=== PATIENT | female | born 1935 | race Caucasian/White ===

== ENCOUNTER 2018-10-14 07:19 | Inpatient (IN) | payer BC ==
[~2018-10-14] VITALS: Ht 167.6 cm; Wt 67.0 kg
[2018-10-14] VITALS (9 sets, daily range): BP systolic 114–123; BP diastolic 58–70; PULSE 74–110; RESP 18–25; Ht 167.6 cm; Wt 67.0 kg
[2018-10-14] MEDS ORDERED: morphine 4 MG/ML VIAL IV STA (07:25)
[2018-10-14] MEDS ORDERED: SODIUM CHLORIDE 0.9% 1L BAG IV* STA (07:25)
[2018-10-14] MEDS ORDERED: CEFEPIME 2GM/50 ML (PMX) 50 ML IVPB STA (07:25)
[2018-10-14] MEDS ORDERED: ONDANSETRON 4 MG INJ IV STA (07:25)
[2018-10-14] MEDS ORDERED: PANTOPRAZOLE 40 MG INJ IV STA (07:25)
[2018-10-14] MEDS ORDERED: ACETAMINOPHEN 325 MG TAB PO STA (07:25)
[2018-10-14] MEDS ORDERED: VANCOMYCIN 1 GM (PMX) 250 ML IVPB ONE (07:30)
--- NOTE | 2018-10-14 07:42 | ERD ---
ER Documentation Chief Complaint Chief Complaint fever, blooding dark blood x1 this morning also low o2 saturation HPI This is an 83-year-old female with a history of Alzheimer's recently placed in [facility] for rehabilitation due to a right ankle fracture. The patient awoke this morning and appeared hypoxic. She was satting at roughly 70% required 2 L nasal cannula and improved her pulse ox to 98%. Th ere is no coughing choking or gagging episode. The patient also had an episode of coffee-ground emesis. She had no hemoptysis and no hematemesis. Her daughter also noticed that her abdomen appeared distended when she went to visit this morning. She stated that her mother appeared clammy and pale. Therefore 911 was called and EMS brought the patient to the emergency department to be further evaluated. Patient currently is receiving 5000 units of heparin cutaneously every 12 hours for DVT prophylaxis. Her daughter also indicates that she has been having urinary retention for several days. She is wearing a diaper but her daughter states she has not noticed any wet diapers for several days and nor has nursing staff. 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 The patient at [place] emergency room had a closed reduction of her right ankle fracture. The patient is a full code. ROS All systems reviewed and are negative except as per history of present illness. Allergies Allergies: Coded Allergies: No Known Allergy (Unverified , 10/14/18) Physical Exam Vitals Vital Signs Date Temp Pulse Resp B/P (MAP) Pulse Ox O2 O2 Flow FiO2 Time Delivery Rate 10/14/18 97 07:30 10/14/18 98.1 117 20 145/114 90 07:29 (124) Physical Exam Constitutional:Well-developed. Well-nourished. Mild respiratory distress HEENT:Normocephalic. Atraumatic.Pupils were equal round reactive to light. Very dry mucous membranes.No tonsillar exudates. Neck: No nuchal rigidity. No lymphadenopathy. No posterior cervical spine tenderness or step-offs. Respiratory: Not using accessory muscles of respiration.Lungs were clear to auscultation bilaterally. No rhonchi. No rales. Bilateral wheezing Cardiovascular: Regular rate regular rhythm.No murmurs. No rubs were appreci ated.S1, S2 normal. Distal pulses 2+ in the left lower extremity not palpable in the right lower extremity as patient is in a short leg cast. GI: Abdomen was distended, palpable bladder, hypoactive bowel sounds, with mild diffuse tenderness.. No pulsatile abdominal masses or bruits. No rebound. No guarding. Muscle skeletal: Full range of motion of both the upper extremities bilaterally. No tenderness to the left lower extremity. Short leg cast in the right lower extremity. Skin: No petechia, no purpura. No lesions on the palms or the soles of the feet. No maculopapular rash. NEURO: Patient was alert with her eyes open patient withdrew to pain. Patient was mumbling incomprehensible sounds. Patient was not following verbal command. Patient has a history of dementia and normally is alert to person but not to place or time. Gait was not observed. Result Diagram: 10/14/18 0750 10/14/18 0750 Results 24 hrs Laboratory Tests Test 10/14/18 07:50 10/14/18 07:51 10/14/18 07:53 White Blood Count 17.8 10^3/ul Red Blood Count 4.46 10^6/ul Hemoglobin 13.4 g/dl Hematocrit 42.0 % Mean Corpuscular Volume 94.2 fl Mean Corpuscular Hemoglobin 30.0 pg Mean Corpuscular 31.9 g/dl Hemoglobin Concent Red Cell Distribution Width 13.6 % Platelet Count 200 10^3/UL Mean Platelet Volume 10.0 fl Immature Granulocytes % 0.700 % Neutrophils % 91.7 % Lymphocytes % 3.4 % Monocytes % 4.0 % Eosinophils % 0.0 % Basophils % 0.2 % Nucleated Red Blood Cells % 0.0 /100WBC Immature Granulocytes # 0.120 10^3/ul Neutrophils # 16.3 10^3/ul Lymphocytes # 0.6 10^3/ul Monocytes # 0.7 10^3/ul Eosinophils # 0.0 10^3/ul Basophils # 0.0 10^3/ul Nucleated Red Blood Cells # 0.0 10^3/ul Prothrombin Time 14.5 Sec Prothrombin Time Ratio 1.1 INR International 1.12 Normalized Ratio Activated Partial Thromboplast 29.7 Sec Time Sodium Level 141 mmol/L Potassium Level 5.5 mmol/L Chloride Level 99 mmol/L Carbon Dioxide Level 27 mmol/L Anion Gap 15 Blood Urea Nitrogen 53 mg/dl Creatinine 3.37 mg/dl Est Glomerular Filtrat mL/min Rate mL/min Glucose Level 218 mg/dl Calcium Level 9.5 mg/dl Total Bilirubin 0.7 mg/dl Direct Bilirubin 0.00 mg/dl Indirect Bilirubin 0.7 mg/dl Aspartate Amino 31 IU/L Transf (AST/SGOT) Alanine 20 IU/L Aminotransferase (ALT/SGPT) Alkaline Phosphatase 89 IU/L Troponin I Pending Total Protein 8.3 g/dl Albumin 4.5 g/dl Globulin 3.80 g/dl Albumin/Globulin Ratio 1.18 Amylase Level 68 U/L Lipase 61 U/L Urine Color YELLOW Urine Clarity CLEAR Urine pH 5.0 Urine Specific Gordon 1.012 Urine Ketones NEGATIVE mg/dL Urine Nitrite NEGATIVE mg/dL Urine Bilirubin NEGATIVE mg/dL Urine Urobilinogen NEGATIVE mg/dL Urine Leukocyte Esterase NEGATIVE Sophia/ul Urine Microscopic RBC 12 /HPF Urine Microscopic WBC 1 /HPF Urine Bacteria FEW /HPF Urine Hemoglobin 1+ mg/dL Urine Glucose NEGATIVE mg/dL Urine Total Protein NEGATIVE mg/dl POC Venous Lactate 1.6 mmol/L Current Medications Medications Dose Sig/Ely Start Time Status Last (Trade) Ordered Route PRN Stop Time Admin Dose Reason Admin Sodium 2,400 ml BOLUS OVER 2 10/14/18 DC 10/14/18 Chloride HOURS STAT 07:25 07:55 (NS) IV* 10/14/18 07:30 650 mg ONCE STAT 10/14/18 DC Acetaminophen PO 07:25 (Tylenol 10/14/18 07:30 Tab) Morphine 2 mg ONCE STAT 10/14/18 DC 10/14/18 Sulfate IV 07:25 07:56 (morphine) 10/14/18 07:30 Ondansetron 4 mg ONCE STAT 10/14/18 DC 10/14/18 HCl (Zofran IV 07:25 07:56 Inj) 10/14/18 07:31 Cefepime HCl 50 ml @ ONCE STAT 10/14/18 DC 10/14/18 100 mls/hr IVPB 07:25 07:55 10/14/18 07:54 Vancomycin 250 ml @ ONCE ONCE 10/14/18 HCl 125 mls/hr IVPB 07:30 10/14/18 09:29 40 mg ONCE STAT 10/14/18 DC 10/14/18 Pantoprazole IV 07:25 07:56 (Protonix 10/14/18 07:31 Iv) Procedures/MDM The patient presented to the emergency department with an acute and persistent change in their mental status. The differential diagnosis is diverse however reversible causes such as hypoglycemia, opiate overdose, thiamine deficiency were immediately considered. The patient was placed on a nurse monitoring, continuous pulse oximetry and IV access was established. The patients airway was secure however hypoxic events such as anemia, shock, or severe pulmonary disease were all considered as etiologies in this patients presentation. Circulation assessed with good cap refill and did not require fluids or pressure support. Finger stick for rapid glucose determined to be normal. The patient did meet Sirs criteria however her lactic acid was normal. She did receive a 30 cc/kg bolus of normal saline and was treated with broad-spectrum antibiotics as initially it was thought that the patient was sepsis of unclear etiology given vancomycin and cefepime. The patient had significant abdominal distention. This appeared to be causing some dyspnea and hypoxia. The bladder was palpable. Due to her symptoms of urinary retention a Garcia catheter was placed and over 1.6 L of urine, transparent drained into the Garcia bag. The patient's abdominal distention had significantly improved. She was no longer hypoxic and no longer appeared to be in discomfort. The urine was sent for analysis and culture. Blood cultures were also obtained. 12 Lead EKG tracing ordered and reviewed by myself showed: Sinus tachycardia 110 bpm and no arrhythmia. NJ interval normal. QRS duration normal. Right ventricular hypertrophy No ST segment elevation No ST segment depression. No changes consistent with acute ischemia. 1 view chest radiograph was reviewed by myself as the patient did appear to have an episode of coffee-ground emesis. However there is no evidence of an infiltrate or pneumothorax. The patient had a type and screen obtained. She was given Protonix prophylactically. She was also given Zofran. The patient had new onset renal failure with a BUN of 53 and creatinine 3.37. The BUN to creatinine ratio was 15 which indicate this could be renal pathology. Urinalysis showed microscopic hematuria but no evidence of urinary tract infection. Therefore at this time I have obtained a CT scan of the abdomen without contrast for further evaluation into the patient's new onset renal failure and abdominal distention which did appear to be a result of urinary retention. The patient was hyperkalemic with a potassium of 5.5. She received an amp of bicarbonate amp of calcium chloride. The patient has leukocytosis with white blood count of 17,000. She had artery received IV antibiotics. The patient's troponin was elevated at 1.310. The patient received prophylactic aspirin. She will be admitted for serial twelve-lead EKG tracings and cardiac set of enzymes. Departure Diagnosis: Primary Impression: Hematemesis Nausea presence: without nausea Qualified Codes: K92.0 - Hematemesis Additional Impressions: Urinary retention Non-STEMI (non-ST elevated myocardial infarction) Renal failure Renal failure chronicity: acute Acute renal failure type: unspecified Qualified Codes: N17.9 - Acute kidney failure, unspecified Hyperkalemia Condition: Serious GAVIN JUAREZ MD Oct 14, 2018 07:41
[2018-10-14] MEDS ORDERED: CA CHLORIDE 10% 10 ML SYRINGE IV STA (08:41)
[2018-10-14] MEDS ORDERED: NA BICARBONATE 8.4% 50 ML SYG IV STA (08:41)
[2018-10-14] MEDS ORDERED: ACETAMINOPHEN 325 MG TAB PO PRN ×2 (09:30→10:30)
[2018-10-14] MEDS ORDERED: ONDANSETRON 4 MG INJ IV PRN (09:30)
--- NOTE | 2018-10-14 10:17 | HP ---
Date/Time of Note Date/Time of Note DATE: 10/14/18 TIME: 10:17 Assessment/Plan VTE Prophylaxis Pharmacological prophylaxis: heparin (Hold if H&H drops) Lines/Catheters IV Catheter Type (from [facility]): Saline Lock Assessment/Plan Hospital Course 83-year-old female with a past medical history of dementia who recently had a right ankle fracture that was treated with a plaster cast and she was getting rehabilitation at a long term facility. The patient became hypoxic and was cold and clammy. The patient also had an episode of hematemesis. There fore, paramedics were called and was brought to the emergency room where she was found to have acute kidney injury, hyperkalemia, and elevated troponins, who will be admitted to inpatient setting for further treatment and evaluation. 1. NSTEMI. -Etiology unclear. -Obtain cardiology consult. -Obtain 2D echocardiogram to evaluate the left ventricular ejection fraction and to evaluate for any wall motion abnormalities. -Start aspirin. -Therapeutic anticoagulation will be deferred to cardiology specifically since the patient had an episode of hematemesis. 2. Acute kidney injury. -Etiology could be multifactorial including urinary outlet obstruction. -Obtain nephrology evaluation. -Use nephrotoxic drugs with caution. 3. Urinary obstruction. -Status post Garcia catheter placement. -CT scan of the abdomen and pelvis showing mild bilateral hydroureteronephrosis. -Obtain Urology consult. 4. Hyperkalemia. -Most probably secondary to #2. -Status post treatment. 5. Alzheimer's dementia. -Resume donepezil. 6. Recent right ankle fracture. -Status post plaster cast placement. 7. Hematemesis. -Start the patient on PPI. -Obtain serial H&Hs. Plan: The patient will be admitted to inpatient telemetry floor. The patient will be kept n.p.o. except for medications.. The patient will be started on DVT prophylaxis and gastrointestinal prophylaxis. The patient will remain a full code. Activities will be bedrest. The rest of the patient's management will be based on the clinical course, inputs from consultants, and the results of diagnostic studies. Based on the patient's clinical presentation, she most probably requires at least 2 midnights' stay for further management and evaluation of her clinical presentation. The patient was seen in collaboration with Dr. Cortes. Result Diagram: 10/14/18 0750 10/14/18 0750 Results 24hrs Laboratory Tests Test 10/14/18 07:50 10/14/18 07:51 10/14/18 07:53 White Blood Count 17.8 H Red Blood Count 4.46 Hemoglobin 13.4 Hematocrit 42.0 Mean Corpuscular Volume 94.2 Mean Corpuscular Hemoglobin 30.0 Mean Corpuscular Hemoglobin Concent 31.9 L Red Cell Distribution Width 13.6 Platelet Count 200 Mean Platelet Volume 10.0 Immature Granulocytes % 0.700 H Neutrophils % 91.7 H Lymphocytes % 3.4 L Monocytes % 4.0 Eosinophils % 0.0 Basophils % 0.2 Nucleated Red Blood Cells % 0.0 Immature Granulocytes # 0.120 H Neutrophils # 16.3 H Lymphocytes # 0.6 L Monocytes # 0.7 Eosinophils # 0.0 Basophils # 0.0 Nucleated Red Blood Cells # 0.0 Prothrombin Time 14.5 Prothrombin Time Ratio 1.1 INR International Normalized Ratio 1.12 Activated Partial Thromboplast Time 29.7 Sodium Level 141 Potassium Level 5.5 H Chloride Level 99 Carbon Dioxide Level 27 Anion Gap 15 H Blood Urea Nitrogen 53 H Creatinine 3.37 H Est Glomerular Filtrat Rate mL/min Glucose Level 218 Calcium Level 9.5 Total Bilirubin 0.7 Direct Bilirubin 0.00 Indirect Bilirubin 0.7 Aspartate Amino Transf (AST/SGOT) 31 Alanine Aminotransferase (ALT/SGPT) 20 Alkaline Phosphatase 89 Troponin I 1.310 *H Total Protein 8.3 H Albumin 4.5 Globulin 3.80 H Albumin/Globulin Ratio 1.18 Amylase Level 68 Lipase 61 Urine Color YELLOW Urine Clarity CLEAR Urine pH 5.0 Urine Specific Haskell 1.012 Urine Ketones NEGATIVE Urine Nitrite NEGATIVE Urine Bilirubin NEGATIVE Urine Urobilinogen NEGATIVE Urine Leukocyte Esterase NEGATIVE Urine Microscopic RBC 12 H Urine Microscopic WBC 1 Urine Bacteria FEW A Urine Hemoglobin 1+ H Urine Glucose NEGATIVE Urine Total Protein NEGATIVE POC Venous Lactate 1.6 HPI/ROS Admit Date/Time Admit Date/Time Hx of Present Illness Reason for for admission: Brought in from a long term facility because of worsening mental status. JEANNINE and elevated troponins in the emergency room. Consultants 1. Og Cm D.O, Cardiology. 2. Barrington Bowden D.O, Nephrology. This is an 83-year-old female with past medical history of Alzheimer's dementia. The patient was at [facility] due to a right ankle fracture for rehabilitation. The patient woke up this morning and appeared hypoxic. The patient was saturating apparently 70% and required 2 L of nasal cannula with improvement in the pulse oximetry. The patient also had an episode of coffee-ground emesis. The patient also had a distended abdomen as per the patient's daughter who visited her mother this morning. The patient also appeared clammy as per the patient's daughter. Therefore, 911 was called and the patient was brought to the emergency room for further evaluation. The patient had significant abdominal distention that improved with Garcia catheter insertion that drained 1600 mL of urine. The patient was also noticed to have elevated troponins and leukocytosis. The patient was also noticed to be in acute kidney injury. The patient was afebrile. The patient underwent a CT scan of the abdomen and pelvis that was showing mild bilateral hydroureteronephrosis and sigmoid diverticulosis without diverticulitis. The patient was also noticed to have a hyperkalemia with a potassium of 5.5. The patient was treated with IV vancomycin and Zosyn along with IV sodium bicarbonate and calcium chloride. ROS Subjective hx not possible: other (Patient has underlying dementia.) PMH/Family/Social Past Medical History 1. Dementia. Medications Current Medications Ondansetron HCl (Zofran Inj) 4 mg ER BRIDGE PRN IV NAUSEA/VOMITING; Start 10/14/18 at 09:30; Stop 10/15/18 at 09:29 Acetaminophen (Tylenol Tab) 650 mg ER BRIDGE PRN PO .MILD PAIN 1-3 OR TEMP; Start 10/14/18 at 09:30; Stop 10/15/18 at 09:29 Coded Allergies: No Known Allergy (Unverified , 10/14/18) Past Surgical History 1. Brain surgery for tumor removal. 2. Hysterectomy. 3. Right hip arthroplasty. 4. Lumbar laminectomy. Social History The patient is demented. Currently lives in a long term facility. Alcohol Use: none Smoking Status: Never smoker Drug Use: none Exam/Review of Systems Vital Signs Vitals Vital Signs Date Temp Pulse Resp B/P (MAP) Pulse Ox O2 O2 Flow FiO2 Time Delivery Rate 10/14/18 105 22 131/92 97 Nasal 4.0 09:30 (105) Cannula 10/14/18 98.0 08:00 Exam Exam General: Adequately build 83 year-old female lying in bed in no apparent distress. HEENT: Normocephalic, atraumatic. Eyes: Anicteric sclerae, conjunctivae clear. ENT: Nasal septum midline, oral mucosa is dry. Neck supple, no JVD noticed. Respiratory: Bilaterally diminished breath sounds. No use of accessory muscles of respiration. No adventitious breath sounds. Cardiovascular: S1, S2 heard. Regular rate and rhythm. Abdomen: Distended and nontender. Genitourinary: Garcia catheter in place. Extremities: No cyanosis, no clubbing, no edema. Peripheral pulses palpable. Right knee plaster cast. Neurologic: The patient is awake and alert. Oriented to self. Skin: Normal skin turgor. No skin rashes. Additional Comments CT Abdomen & Pelvis IMPRESSION: 1. Mild bilateral hydroureteronephrosis. Garcia catheter within decompressed bladder. No evidence of urolithiasis. Bilateral renal cysts. 2. Sigmoid diverticulosis without diverticulitis. 3. Status post hysterectomy, right hip arthroplasty, and lumbar laminectomy with posterior fixation. 4. Calcific atherosclerosis of the aorta and coronary arteries. CXR IMPRESSION: 1. Atherosclerosis. 2. Otherwise normal chest x-ray. ADITYA VALDEZ NP Oct 14, 2018 10:17
[2018-10-14] MEDS ORDERED: SOD CHLORIDE 0.9% 1,000 ML IV SCH (10:21)
[2018-10-14] MEDS ORDERED: NACL 0.9% 3 ML SYG IV SCH (10:30)
[2018-10-14] MEDS ORDERED: DONE10TA7 PO (10:49)
[2018-10-14] MEDS ORDERED: MINE133E23 PR (10:50)
[2018-10-14] MEDS ORDERED: GABA-526 PO (10:50)
[2018-10-14] MEDS ORDERED: BISA10SU75 PR (10:50)
[2018-10-14] MEDS ORDERED: MELA3TAB PO (10:51)
[2018-10-14] MEDS ORDERED: HEPA500021 IJ (10:51)
[2018-10-14] MEDS ORDERED: MULTI PO (10:51)
[2018-10-14] MEDS ORDERED: QUET25TA PO (10:52)
[2018-10-14] MEDS ORDERED: HYDR-4011 PO (10:52)
[2018-10-14] MEDS ORDERED: SENN-120 PO (10:52)
[2018-10-14] MEDS ORDERED: ALPR0.5T PO (10:53)
[2018-10-14] MEDS ORDERED: HEPARIN 5,000 UNIT/1 ML VIAL SC SCH (14:00)
[2018-10-14] MEDS ORDERED: SOD CHLORIDE 0.9% 1,000 ML IV ONE (14:00)
--- NOTE | 2018-10-14 14:07 | RADRPT ---
Echocardiogram Report Patient Name: LIZETH STEARNSPatient ID: [id number] : 5 (83y 2m)Study Date: 10/14/2018 11:38:12 AM Gender: FAccession #: [id number] Tech: [facility] Location: [address] Ref.Physician: ADITYA VALDEZ Height(Cm): BSA: Weight(Kg): Quality: AdequateAccount #: Procedures: Echocardiographic Report: Transthoracic echocardiogram with complete 2D, M-Mode, and doppler examination. Indications: Evaluate Left Ventricular function. Measurements: 2D/M Mode Doppler Measurement Value Normal Range Measurement Value Normal Range LVIDd 2D 3.7 [ 3.8 - 5.2 ] cm AV Peak Luigi 1.4 [ 100.0 - 170.0 ] cm/sec LVIDs 2D 2.6 [ 2.2 - 3.5 ] cm AV Peak PG 8.0 [ 2.0 - 9.0 ] mmHg LVPWd 2D 0.9 [ 0.6 - 0.9 ] cm LVOT Peak Luigi 1.0 [ 70.0 - 110.0 ] cm/sec IVSd 2D 0.9 [ 0.6 - 0.9 ] cm LVOT Peak PG 4.0 [ 2.0 - 6.0 ] mmHg AoR Diam 2D 2.4 [ 2.3 - 3.1 ] cm MV E Peak Luigi 0.4 [ 60.0 - 130.0 ] cm/sec EDV 2D 56.3 [ 46.0 - 106.0 ] ml MV A Peak Luigi 0.8 [ 100.0 - 120.0 ] cm/sec ESV 2D 25.1 [ 14.0 - 42.0 ] ml MV E/A 0.5 [ 0.8 - 1.5 ] ratio EF 2D 55.4 [ 54.0 - 74.0 ] percent MV Decel Time 137 [ 104 - 258 ] msec LA Dimen 2D 2.5 [ 2.7 - 3.8 ] cm Lat E` Luigi 0.1 [ 10.0 - 15.0 ] cm/sec Lateral E/E` 6.2 [ 1.0 - 2.0 ] ratio Med E` Luigi 0.1 cm/sec MV E/A 0.5 [ 0.8 - 1.5 ] ratio TR Peak Luigi 3.0 [ 100.0 - 280.0 ] cm/sec TR Peak PG 37.0 mmHg RVSP 40.0 [ 10.0 - 36.0 ] mmHg Findings: Left Ventricle: Normal left ventricular systolic function. Normal left ventricular cavity size. Normal left ventricular wall thickness. Ejection fraction is visually estimated at 60 %. Tissue Doppler/Mitral Doppler indices are consistent with impaired relaxation (Stage I diastolic dysfunction). Right Ventricle: Normal right ventricular size. Normal right ventricular systolic function. Left Atrium: The left atrium is normal in size. Right Atrium: The right atrium is normal in size. Mitral Valve: Mild mitral leaflet calcification. Mild mitral annular calcification. Trace mitral regurgitation. Aortic Valve: No significant aortic stenosis or insufficiency. Aortic cusps appear mildly calcified. Mild aortic valve regurgitation. Tricuspid Valve: Normal appearance of the tricuspid valve. Estimated peak PA systolic pressure 40 mmHg. There is moderate tricuspid regurgitation. Pulmonic Valve: Pulmonic valve not well visualized. There is trace pulmonic regurgitation. Pericardium: Normal pericardium with no significant pericardial effusion. Aorta: Normal aortic root. IVC: Normal size with poor respiratory collapse consistent with elevated right atrial pressure. Conclusions: Normal left ventricular systolic function. Normal left ventricular cavity size. Normal left ventricular wall thickness. Ejection fraction is visually estimated at 60 %. Tissue Doppler/Mitral Doppler indices are consistent with impaired relaxation (Stage I diastolic dysfunction). Electronically Signed By: Migue Rucker 2018-10-14 14:07:06 PST
--- NOTE | 2018-10-14 14:33 | CONS ---
DATE OF ADMISSION: 10/14/2018 DATE OF CONSULTATION: 10/14/2018 TYPE OF CONSULTATION: Nephrology. REASON FOR CONSULTATION: Acute kidney injury. PHYSICIAN REQUESTING CONSULT: Quiana Prabhakar MD and Vincent Garcia NP HISTORY OF PRESENT ILLNESS: This is an 83-year-old female with a past medical history of Alzheimer's dementia and history of osteoarthritis, who presents to [facility] from a skilled nurse facility due to hypoxemia. The patient was recently at [facility] d ue to right ankle fracture. According to the patient's daughter who was able to provide history, she states that the patient in the last 24 hours has not been looking well. The patient ____ desaturati ng, had episode of coffee-ground emesis. As a result, she was transferred to [facility] for evaluation. On arrival, the patient had laboratory data drawn including CT scan of the abd omen and pelvis which showed bilateral hydroureteronephrosis, diverticulosis without diverticulitis. The patient's laboratory data were also drawn which showed elevated creatinine. In the emergency ro om, the patient has a Garcia catheter placement with excellent urinary output. She was given IV antib iotic and admitted to telemetry med/surg for further evaluation. In patient's renal history per patient's daughter, she had no prior history of acute kidney injury or CKD. On admission, the patient had potassium of 5.5, BUN 53, creatinine 3.37. The patient had no r eports of any hemoptysis, hematemesis or hematochezia. PAST MEDICAL HISTORY: As stated above, history of Alzheimer's dementia, history of osteoarthritis. PAST SURGICAL HISTORY: Status post hip arthroplasty, lumbar laminectomy, hysterectomy. SOCIAL HISTORY: Lives at skilled nurse facility. FAMILY HISTORY: No family history of kidney disease. MEDICATIONS: Have been reviewed. REVIEW OF SYSTEMS: Unable to do adequate review of systems as the patient is altered. Pertinent pos itives as obtained by reviewing medical records and speaking to hospital staff, the patient's family, stated in HPI; otherwise negative. PHYSICAL EXAMINATION: VITAL SIGNS: Blood pressure is 150/85, respirations 20, pulse 107, temperature 98.0. HEENT: Head is normocephalic. NECK: Supple. HEART: Regular rate. LUNGS: Show diminished breath sounds at base. ABDOMEN: Soft, nontender to palpation. No rebound or guarding. EXTREMITIES: Negative for clubbing, cyanosis. No edema. DERMATOLOGIC: No rashes. MUSCULOSKELETAL: No joint effusion. NEUROLOGIC: No obvious focal deficits. LABORATORY DATA: Show sodium 141, potassium 5.5, chloride 99, BUN 52, creatinine 3.37. Troponin 1.3 10. White count 17.8, hemoglobin 13.8, platelet count 200. Urinalysis shows positive hematuria, ___ _. ASSESSMENT AND PLAN: This is an 83-year-old female presenting with: 1. Nonoliguric acute kidney injury with unknown baseline creatinine. Etiology of acute kidney injur y may be secondary to obstructive uropathy. The patient's CT scan shows evidence of bilateral hydrou reteronephrosis. Etiology may be secondary to outlet obstruction. The patient has excellent urinary output after Garcia catheter was placed. Plan at this point is to repeat a BMP to see if there is im provement in renal function. We will repeat a urinalysis. We will check urine electrolytes. We wilmar l check a renal ultrasound for further evaluation of renal parenchyma. Otherwise, continue supportiv e care, renally dose meds, avoid nephrotoxins. 2. Hyperkalemia. Etiology may be secondary to acute kidney injury and obstructive uropathy. The pa tient is status post temporizing measures. We will repeat a BMP level and renal panel. The patient is to be placed on a low potassium diet. 3. Bilateral hydroureteronephrosis. Etiology is like secondary to obstruction. The patient is stat us post Garcia catheter placement with improved urinary output. Will continue to monitor. Consider u rologic evaluation. 4. Mineral bone disorder. Monitor calcium and phosphorus levels. 5. Elevated troponin, possible non-ST elevation myocardial infarction. Plan is to continue to check serial troponins. Check a 2D echo. Continue with medical management. Continue aspirin. 6. Acute encephalopathy and Alzheimer's dementia. Continue to monitor. 7. Possible hematemesis. The patient's hemoglobin level is stable. We will continue to monitor. Co ntinue PPI. 8. Leukocytosis/systemic inflammatory response syndrome. Etiology is still unclear. The patient is currently on empiric antibiotics. We will continue. Follow up cultures. Thank you, Mateo, for this interesting consult. It will be a pleasure to follow the patient with lo pacheco throughout the hospital course. Dictated By: MICHELLE ONEIL/SANDRA Conf#: [id number] DID#: [id number] CC: ZAIN PALOMARES; MARIBELL LOU DO;*EndCC*
--- NOTE | 2018-10-14 14:36 | CONS ---
Assessment/Plan Assessment/Plan Assessment/Plan (Daily) Elevated troponin with preserved EF and no symptoms in the setting of renal failure and hyperkalemia doubt ACS would treat for renal failure possible UTI follow troponin to ensure down trending Consultation Date/Type/Reason Admit Date/Time Type of Consult Cardiology Reason for Consultation elevated troponin Date/Time of Note DATE: 10/14/18 TIME: 14:33 Hx of Present Illness 83 YO with recent ankle fx found in SNF by daughter to be diaphortic with distended abdomen. Brought to ER found to have urinary retention, renal failure and elevated troponin. Pt poor historian hx of dementia. Denies CP poor historian due to dementia and confusion Past Medical History Home Meds Reported Medications Alprazolam* (Xanax*) 0.5 Mg Tab, 0.5 MG PO Q12 PRN for ANXIETY, TAB 10/14/18 Quetiapine Fumarate* (Seroquel*) 25 Mg Tablet, 25 MG PO HS, #30 TAB 10/14/18 Sennosides* (Senna Lax*) 8.6 Mg Tablet, 1 TAB PO QHS PRN for CONSTIPATION, TAB 10/14/18 Hydrocodone/Acetaminophen ([place] 5-325 Tablet) 1 Each Tablet, 1 EACH PO Q6 PRN for SEVERE PAIN LEVEL 7-10, TAB 10/14/18 Multivitamins* (Theragran*) 1 Tab Tab, 1 TAB PO DAILY, TAB 10/14/18 Melatonin (Melatonin ODT) 3 Mg Tab.rapdis, 3 MG PO HS, TAB 10/14/18 Heparin Sodium,Porcine/Pf (HEPARIN SOD 5,000 UNIT/ 0.5 ML) 5,000 Unit/0.5 Ml Vial, 5000 UNIT IJ Q12, VIAL 10/14/18 Gabapentin* (Gabapentin*) 600 Mg Tablet, 600 MG PO TID, #90 TAB 10/14/18 Mineral Oil* (Fleet* Mineral Oil Enema) 133 Ml Oil, 133 ML DE NEEDED PRN for CONSTIPATION, ENEMA 10/14/18 Bisacodyl* (Bisacodyl*) 10 Mg Supp, 10 MG DE Q48 PRN for CONSTIPATION, SUPP 10/14/18 Donepezil* (Donepezil*) 10 Mg Tablet, 10 MG PO DAILY, #30 TAB 10/14/18 Medications Current Medications IV Flush (NS 3 ml) 3 ml PER PROTOCOL IV ; Start 10/14/18 at 10:30 Aspirin (Aspirin) 81 mg DAILY PO ; Start 10/15/18 at 09:00 Acetaminophen (Tylenol Tab) 650 mg Q6H PRN PO .PAIN 1-3 OR TEMP; Start 10/14/18 at 10:30 Heparin Sodium (Porcine) (Heparin (5000 Units/1ml)) 5,000 unit Q8 SC ; Start 10/14/18 at 14:00; Status Hold Pantoprazole (Protonix Iv) 40 mg BID@06,18 IV ; Start 10/14/18 at 18:00 Sodium Chloride 1,000 ml @ 60 mls/hr [id number] ONCE IV ; Start 10/14/18 at 14:00; Stop 10/15/18 at 06:39 Allergies: Coded Allergies: No Known Allergy (Unverified , 10/14/18) Social History Alcohol Use: none Smoking Status: Never smoker Drug Use: none Exam/Review of Systems Exam Vitals Vital Signs Date Temp Pulse Resp B/P (MAP) Pulse Ox O2 O2 Flow FiO2 Time Delivery Rate 10/14/18 103 12:15 10/14/18 97.5 25 116/63 98 Nasal 2.0 11:30 (80) Cannula Constitutional: alert; No oriented Respiratory: clear to auscultation Cardiovascular: regular rate and rhythm; No edema Gastrointestinal: soft Results Result Diagram: 10/14/18 1149 10/14/18 0750 Results 24hrs Laboratory Tests Test 10/14/18 07:50 10/14/18 07:51 10/14/18 07:53 10/14/18 10:42 White Blood Count 17.8 H Red Blood Count 4.46 Hemoglobin 13.4 Hematocrit 42.0 Mean Corpuscular 94.2 Volume Mean Corpuscular 30.0 Hemoglobin Mean Corpuscular 31.9 L Hemoglobin Concent Red Cell 13.6 Distribution Width Platelet Count 200 Mean Platelet Volume 10.0 Immature 0.700 H Granulocytes % Neutrophils % 91.7 H Lymphocytes % 3.4 L Monocytes % 4.0 Eosinophils % 0.0 Basophils % 0.2 Nucleated Red Blood 0.0 Cells % Immature 0.120 H Granulocytes # Neutrophils # 16.3 H Lymphocytes # 0.6 L Monocytes # 0.7 Eosinophils # 0.0 Basophils # 0.0 Nucleated Red Blood 0.0 Cells # Prothrombin Time 14.5 Prothrombin Time 1.1 Ratio INR International 1.12 Normalized Ratio Activated 29.7 Partial Thromboplast Time Sodium Level 141 Potassium Level 5.5 H Chloride Level 99 Carbon Dioxide Level 27 Anion Gap 15 H Blood Urea Nitrogen 53 H Creatinine 3.37 H Est Glomerular Filtrat Rate mL/min Glucose Level 218 Calcium Level 9.5 Total Bilirubin 0.7 Direct Bilirubin 0.00 Indirect Bilirubin 0.7 Aspartate Amino 31 Transf (AST/SGOT) Alanine 20 Aminotransferase (AL T/SGPT) Alkaline Phosphatase 89 Troponin I 1.310 *H Total Protein 8.3 H Albumin 4.5 Globulin 3.80 H Albumin/Globulin 1.18 Ratio Amylase Level 68 Lipase 61 Urine Color YELLOW Urine Clarity CLEAR Urine pH 5.0 Urine Specific 1.012 [place] Urine Ketones NEGATIVE Urine Nitrite NEGATIVE Urine Bilirubin NEGATIVE Urine Urobilinogen NEGATIVE Urine Leukocyte NEGATIVE Esterase Urine Microscopic 12 H RBC Urine Microscopic 1 WBC Urine Bacteria FEW A Urine Hemoglobin 1+ H Urine Glucose NEGATIVE Urine Total Protein NEGATIVE POC Venous Lactate 1.6 1.4 Test 10/14/18 11:49 10/14/18 11:50 Hemoglobin 11.8 L Hematocrit 37.1 Hemoglobin A1c 5.6 Creatine Kinase 81 Creatine Kinase 3.8 Index Creatinine Kinase MB 3.05 H (Mass) Troponin I 1.470 *H Lactic Acid Level 3.2 *H Medications Medication Current Medications IV Flush (NS 3 ml) 3 ml PER PROTOCOL IV ; Start 10/14/18 at 10:30 Aspirin (Aspirin) 81 mg DAILY PO ; Start 10/15/18 at 09:00 Acetaminophen (Tylenol Tab) 650 mg Q6H PRN PO .PAIN 1-3 OR TEMP; Start 10/14/18 at 10:30 Heparin Sodium (Porcine) (Heparin (5000 Units/1ml)) 5,000 unit Q8 SC ; Start 10/14/18 at 14:00; Status Hold Pantoprazole (Protonix Iv) 40 mg BID@06,18 IV ; Start 10/14/18 at 18:00 Sodium Chloride 1,000 ml @ 60 mls/hr [id number] ONCE IV ; Start 10/14/18 at 14:00; Stop 10/15/18 at 06:39 JESÚS MENDIETA MD Oct 14, 2018 14:36
[2018-10-14] MEDS: PANTOPRAZOLE 40 MG INJ IV SCH (17:34)
[2018-10-14] MEDS ORDERED: SENNA TAB PO PRN (19:00)
[2018-10-14] MEDS ORDERED: ALPRAZOLAM 0.5 MG TAB PO PRN (19:00)
[2018-10-14] MEDS: QUETIAPINE 25 MG TAB PO SCH (20:14)
[2018-10-14] MEDS: GABAPENTIN 300 MG CAP PO SCH (20:14)
[2018-10-15] VITALS (16 sets, daily range): BP systolic 97–137; BP diastolic 55–74; PULSE 85–109; RESP 16–20
[2018-10-15] MEDS: PANTOPRAZOLE 40 MG INJ IV SCH ×2 (05:52→17:41)
[2018-10-15] MEDS ORDERED: DONEPEZIL 10 MG TAB PO SCH (09:00)
[2018-10-15] MEDS: SOD CHLORIDE 0.45% 1,000 ML IV SCH ×2 (09:20→20:48)
[2018-10-15] MEDS: GABAPENTIN 300 MG CAP PO SCH (10:39)
[2018-10-15] MEDS: ASPIRIN 81 MG TAB PO SCH (10:39)
[2018-10-15] MEDS: MULTIVITAMINS THERAPEUTIC TAB PO SCH (10:39)
--- NOTE | 2018-10-15 11:41 | PN ---
Date/Time of Note Date/Time of Note DATE: 10/15/18 TIME: 11:36 Assessment/Plan VTE Prophylaxis Risk score (from [facility])>0 risk: 10 SCD applied (from [facility]): Yes Pharmacological prophylaxis: NA/contraindicated Pharm contraindication: bleeding Lines/Catheters IV C[facility]ter Type (from [facility] Peripheral IV Assessment/Plan Hospital Course 1. NSTEMI likely type II secondary to demand -Cardiology consultation appreciated -Echo with preserved EF 2. Acute kidney injury likely secondary to obstructive uropathy from neurogenic bladder -Nephrology consultation appreciated -Patient status post Garcia catheter placement with a significant amount of urine output 3. Urinary retention likely secondary to neurogenic bladder from dementia -Status post Garcia catheter placement. -CT scan of the abdomen and pelvis showing mild bilateral hydroureteronephrosis. -Urology consultation obtained 4. Hyperkalemia secondary to acute kidney injury-resolved 5. Alzheimer's dementia. -DC Aricept as patient's primary to new this medication as patient's dementia is too severe for any benefit 6. History of brain mass status post resection -Patient has been on gabapentin for the past year for seizure prophylaxis, patient has never actually had a seizure and will DC gabapentin as this may be contributing to neurogenic bladder, have discussed risks and benefits of discontinuing gabapentin with patient's daughter and she agrees with discontinuing 7. Recent right ankle fracture. -Status post plaster cast placement. 8. Hematemesis-resolved -Continue PPI -Monitor -No indication for GI consultation at this time Prophylaxis: SCD Result Diagram: 10/15/18 0558 10/15/18 0558 Results 24hrs Laboratory Tests Test 10/14/18 11:49 10/14/18 11:50 10/14/18 13:59 10/14/18 14:03 Hemoglobin 11.8 L Hematocrit 37.1 Hemoglobin A1c 5.6 Creatine Kinase 81 Creatine Kinase 3.8 Index Creatinine Kinase 3.05 H MB (Mass) Troponin I 1.470 *H Lactic Acid Level 3.2 *H Sodium Level 142 Potassium Level 4.9 Chloride Level 105 Carbon Dioxide 29 Level Anion Gap 8 Blood Urea 44 H Nitrogen Creatinine 2.12 #H Est Glomerular Filtrat Rate mL/min Glucose Level 141 # Calcium Level 9.2 B-Type 5210 H Natriuretic Peptide Test 10/14/18 14:30 10/14/18 17:59 2/16/19 00:23 10/15/18 05:58 Urine Color YELLOW Urine Clarity SLIGHTLY CLOUDY A Urine pH 5.0 Urine Specific 1.014 [place] Urine Ketones NEGATIVE Urine Nitrite NEGATIVE Urine Bilirubin NEGATIVE Urine NEGATIVE Urobilinogen Urine Leukocyte NEGATIVE Esterase Urine Microscopic 55 H RBC Urine Microscopic 7 H WBC Urine Bacteria FEW A Urine Mucus FEW A Urine Hemoglobin 3+ H Urine Random 72.72 Creatinine Urine Random 103 H Sodium Urine Glucose NEGATIVE Urine Total 49.0 H Protein Creatine Kinase 59 62 Creatine Kinase 4.8 2.7 Index Creatinine Kinase 2.86 H 1.69 MB (Mass) Troponin I 1.270 *H 1.160 *H 0.956 *H White Blood Count 15.0 H Red Blood Count 3.31 #L Hemoglobin 10.1 L Hematocrit 32.1 L Mean Corpuscular 97.0 Volume Mean Corpuscular 30.5 Hemoglobin Mean Corpuscular 31.5 L Hemoglobin Concen t Red Cell 13.5 Distribution Width Platelet Count 129 #L Mean Platelet 10.4 Volume Immature 0.700 H Granulocytes % Neutrophils % 83.5 H Lymphocytes % 8.7 L Monocytes % 5.7 Eosinophils % 1.1 Basophils % 0.3 Nucleated Red 0.0 Blood Cells % Immature 0.100 H Granulocytes # Neutrophils # 12.6 H Lymphocytes # 1.3 Monocytes # 0.9 Eosinophils # 0.2 Basophils # 0.1 Nucleated Red 0.0 Blood Cells # Sodium Level 147 H Potassium Level 5.0 Chloride Level 105 Carbon Dioxide 30 Level Anion Gap 12 Blood Urea 42 H Nitrogen Creatinine 1.56 H Est Glomerular Filtrat Rate mL/min Glucose Level 116 Calcium Level 8.9 Phosphorus Level 4.6 Magnesium Level 2.2 Total Bilirubin 0.6 Direct Bilirubin 0.00 Indirect 0.6 Bilirubin Aspartate Amino 24 Transf (AST/SGOT) Alanine 24 Aminotransferase (ALT/SGPT) Alkaline 59 Phosphatase Total Protein 6.6 # Albumin 3.4 # Globulin 3.20 Albumin/Globulin 1.06 Ratio Triglycerides 123 Level Cholesterol Level 161 LDL Cholesterol, 92 Calculated HDL Cholesterol 44 Cholesterol/HDL 3.6 Ratio Subjective 24 Hr Interval Summary Constitutional: disoriented Exam/Review of Systems Exam Vitals Vital Signs Date Temp Pulse Resp B/P (MAP) Pulse Ox O2 O2 Flow FiO2 Time Delivery Rate 10/15/18 99.1 95 17 97/55 (69) 94 11:33 10/15/18 Nasal 3.0 06:00 Cannula Intake and Output 10/14/18 10/14/18 10/15/18 1515:00 23:00 07:00 IntakeIntake Total 2050 ml 600 ml OutputOutput Total 650 ml BalanceBalance 2050 ml -50 ml Psych: confusion Respiratory: clear to auscultation Cardiovascular: regular rate and rhythm Gastrointestinal: soft; No distended Musculoskeletal: nl extremities to inspection Results Results 24hrs Laboratory Tests Test 10/14/18 11:49 10/14/18 11:50 10/14/18 13:59 10/14/18 14:03 Hemoglobin 11.8 L Hematocrit 37.1 Hemoglobin A1c 5.6 Creatine Kinase 81 Creatine Kinase 3.8 Index Creatinine Kinase 3.05 H MB (Mass) Troponin I 1.470 *H Lactic Acid Level 3.2 *H Sodium Level 142 Potassium Level 4.9 Chloride Level 105 Carbon Dioxide 29 Level Anion Gap 8 Blood Urea 44 H Nitrogen Creatinine 2.12 #H Est Glomerular Filtrat Rate mL/min Glucose Level 141 # Calcium Level 9.2 B-Type 5210 H Natriuretic Peptide Test 10/14/18 14:30 10/14/18 17:59 10/15/18 00:23 10/15/18 05:58 Urine Color YELLOW Urine Clarity SLIGHTLY CLOUDY A Urine pH 5.0 Urine Specific 1.014 [place] Urine Ketones NEGATIVE Urine Nitrite NEGATIVE Urine Bilirubin NEGATIVE Urine NEGATIVE Urobilinogen Urine Leukocyte NEGATIVE Esterase Urine Microscopic 55 H RBC Urine Microscopic 7 H WBC Urine Bacteria FEW A Urine Mucus FEW A Urine Hemoglobin 3+ H Urine Random 72.72 Creatinine Urine Random 103 H Sodium Urine Glucose NEGATIVE Urine Total 49.0 H Protein Creatine Kinase 59 62 Creatine Kinase 4.8 2.7 Index Creatinine Kinase 2.86 H 1.69 MB (Mass) Troponin I 1.270 *H 1.160 *H 0.956 *H White Blood Count 15.0 H Red Blood Count 3.31 #L Hemoglobin 10.1 L Hematocrit 32.1 L Mean Corpuscular 97.0 Volume Mean Corpuscular 30.5 Hemoglobin Mean Corpuscular 31.5 L Hemoglobin Concen t Red Cell 13.5 Distribution Width Platelet Count 129 #L Mean Platelet 10.4 Volume Immature 0.700 H Granulocytes % Neutrophils % 83.5 H Lymphocytes % 8.7 L Monocytes % 5.7 Eosinophils % 1.1 Basophils % 0.3 Nucleated Red 0.0 Blood Cells % Immature 0.100 H Granulocytes # Neutrophils # 12.6 H Lymphocytes # 1.3 Monocytes # 0.9 Eosinophils # 0.2 Basophils # 0.1 Nucleated Red 0.0 Blood Cells # Sodium Level 147 H Potassium Level 5.0 Chloride Level 105 Carbon Dioxide 30 Level Anion Gap 12 Blood Urea 42 H Nitrogen Creatinine 1.56 H Est Glomerular Filtrat Rate mL/min Glucose Level 116 Calcium Level 8.9 Phosphorus Level 4.6 Magnesium Level 2.2 Total Bilirubin 0.6 Direct Bilirubin 0.00 Indirect 0.6 Bilirubin Aspartate Amino 24 Transf (AST/SGOT) Alanine 24 Aminotransferase (ALT/SGPT) Alkaline 59 Phosphatase Total Protein 6.6 # Albumin 3.4 # Globulin 3.20 Albumin/Globulin 1.06 Ratio Triglycerides 123 Level Cholesterol Level 161 LDL Cholesterol, 92 Calculated HDL Cholesterol 44 Cholesterol/HDL 3.6 Ratio Medications Medication Current Medications IV Flush (NS 3 ml) 3 ml PER PROTOCOL IV ; Start 10/14/18 at 10:30 Aspirin (Aspirin) 81 mg DAILY PO Last administered on 10/15/18at 10:39; Admin Dose 81 MG; Start 10/15/18 at 09:00 Acetaminophen (Tylenol Tab) 650 mg Q6H PRN PO .PAIN 1-3 OR TEMP; Start 10/14/18 at 10:30 Heparin Sodium (Porcine) (Heparin (5000 Units/1ml)) 5,000 unit Q8 SC ; Start 10/14/18 at 14:00; Status Hold Pantoprazole (Protonix Iv) 40 mg BID@06,18 IV Last administered on 10/15/18at 05:52; Admin Dose 40 MG; Start 10/14/18 at 18:00 Alprazolam (Xanax) 0.5 mg Q12 PRN PO ANXIETY; Start 10/14/18 at 19:00 Donepezil HCl (Aricept) 10 mg DAILY PO ; Start 10/15/18 at 09:00 Gabapentin (Neurontin) 600 mg TID PO Last administered on 10/15/18at 10:39; Admin Dose 600 MG; Start 10/14/18 at 21:00 Multivitamins Therapeutic (Theragran) 1 tab DAILY PO Last administered on 10/15/18at 10:39; Admin Dose 1 TAB; Start 10/15/18 at 09:00 Quetiapine Fumarate (Seroquel) 25 mg HS PO Last administered on 10/14/18at 20:14; Admin Dose 25 MG; Start 10/14/18 at 21:00 Senna (Senokot) 1 tab QHS PRN PO CONSTIPATION; Start 10/14/18 at 19:00 Sodium Chloride 1,000 ml @ 75 mls/hr [id number] IV Last administered on 10/15/18at 09:20; Admin Dose 75 MLS/HR; Start 10/15/18 at 08:30 NOEMI EDGE Oct 15, 2018 11:41
--- NOTE | 2018-10-15 13:16 | CONS ---
Assessment/Plan Assessment/Plan Hospital Course (Demo Recall) 83-year-old female with past medical history of Alzheimer's dementia was at [facility] due to a right ankle fracture for rehabilitation. The patient was found to be hypoxic. The patient was saturating apparently 70% and required 2 L of nasal cannula with improvement in the pulse oximetry. The patient also had an episode of coffee-ground emesis. The patient had a distended abdomen and appeared clammy as per the patient's daughter. Therefore, 911 was called and the patient was brought to the emergency room for further evaluation. The patient had significant abdominal distention that improved with Garcia catheter insertion that drained 1600 mL of urine. The patient was also noticed to have elevated troponins and leukocytosis. The patient was also noticed to be in acute kidney injury. The patient underwent a CT scan of the abdomen and pelvis that was showing mild bilateral hydroureteronephrosis and sigmoid diverticulosis without diverticulitis. The p atient was also noticed to have a hyperkalemia with a potassium of 5.5 Because of the urinary retention and the hydronephrosis a urological consultation was requested. I did see the patient with HER-2 daughters at her bedside. The daughter states that patient prior to falling and sustaining the ankle fracture she was able to walk to the bathroom and urinate without any problem and she did not have any incontinence and was not wearing any diaper. While at the [facility] since she was not allowed to weightbearing on her right ankle she was not able to go to the bathroom and they have a diaper on her. She according to her daughter was holding her urine because she did not want to urinate in the diaper. Her hydronephrosis is secondary to her urinary retention. The retention itself could be secondary to her being constipated, trying to hold her urine, pain medications and other side effect of medications. She may even have had a problem before where she was not emptying her bladder but she was urinating? I would not put her on Urecholine since he has had a history of seizures as the Urecholine could trigger seizures. We will discontinue the Garcia catheter and monitor her voiding and check her postvoid residual and do straight cath on her for a postvoid residual of 300 mL or more and if she does not void in the bladder scan shows 500 mL or more. Consultation Date/Type/Reason Admit Date/Time October 14, 2018 Date of Consultation: Oct 15, 2018 Type of Consult Urology Reason for Consultation Bilateral hydronephrosis and urinary retention Requesting Provider: NOEMI EDGE Date/Time of Note DATE: 10/15/18 TIME: 12:57 Hx of Present Illness 83-year-old female with past medical history of Alzheimer's dementia was at [facility] due to a right ankle fracture for rehabilitation. The patient was found to be hypoxic. The patient was saturating apparently 70% and required 2 L of nasal cannula with improvement in the pulse oximetry. The patient also had an episode of coffee-ground emesis. The patient had a distended abdomen and appeared clammy as per the patient's daughter. Therefore, 911 was called and the patient was brought to the emergency room for further evaluation. The patient had significant abdominal distention that improved with Garcia catheter insertion that drained 1600 mL of urine. The patient was also noticed to have elevated troponins and leukocytosis. The patient was also noticed to be in acute kidney injury. The patient underwent a CT scan of the abdomen and pelvis that was showing mild bilateral hydroureteronephrosis and sigmoid diverticulosis without diverticulitis. The patient was also noticed to have a hyperkalemia with a potassium of 5.5 Because of the urinary retention and the hydronephrosis a urological consultation was requested. I did see the patient with HER-2 daughters at her bedside. The daughter states that patient prior to falling and sustaining the ankle fracture she was able to walk to the bathroom and urinate without any problem and she did not have any incontinence and was not wearing any diaper. While at the [facility] since she was not allowed to weightbearing on her right ankle she was not able to go to the bathroom and they have a diaper on her. She according to her daughter was holding her urine because she did not want to urinate in the diaper. Constitutional: no complaints Eyes: no complaints ENT: no complaints Respiratory: no complaints; No wheezing Cardiovascular: no complaints Gastrointestinal: constipation, other (Abdominal distention on admission) Genitourinary: other (Urinary retention on admission) Musculoskeletal: other (Right ankle fracture. The patient does have a cast on it) Skin: no complaints Neurologic: confusion, seizure (History of seizures. She was on seizure medications but her medical doctor stopped that and replaced it with gabapentin.) Endocrine: no complaints Lymphatic: no complaints Past Medical History Medical History: other (History of seizures long time ago. His seizure medications were stopped by her medical doctor and replaced by gabapentin.) Home Meds Reported Medications Alprazolam* (Xanax*) 0.5 Mg Tab, 0.5 MG PO Q12 PRN for ANXIETY, TAB 10/14/18 Quetiapine Fumarate* (Seroquel*) 25 Mg Tablet, 25 MG PO HS, #30 TAB 10/14/18 Sennosides* (Senna Lax*) 8.6 Mg Tablet, 1 TAB PO QHS PRN for CONSTIPATION, TAB 10/14/18 Hydrocodone/Acetaminophen ([place] 5-325 Tablet) 1 Each Tablet, 1 EACH PO Q6 PRN for SEVERE PAIN LEVEL 7-10, TAB 10/14/18 Multivitamins* (Theragran*) 1 Tab Tab, 1 TAB PO DAILY, TAB 10/14/18 Melatonin (Melatonin ODT) 3 Mg Tab.rapdis, 3 MG PO HS, TAB 10/14/18 Heparin Sodium,Porcine/Pf (HEPARIN SOD 5,000 UNIT/ 0.5 ML) 5,000 Unit/0.5 Ml Vial, 5000 UNIT IJ Q12, VIAL 10/14/18 Gabapentin* (Gabapentin*) 600 Mg Tablet, 600 MG PO TID, #90 TAB 10/14/18 Mineral Oil* (Fleet* Mineral Oil Enema) 133 Ml Oil, 133 ML [place] NEEDED PRN for CONSTIPATION, ENEMA 10/14/18 Bisacodyl* (Bisacodyl*) 10 Mg Supp, 10 MG [place] Q48 PRN for CONSTIPATION, SUPP 10/14/18 Donepezil* (Donepezil*) 10 Mg Tablet, 10 MG PO DAILY, #30 TAB 10/14/18 Medications Current Medications IV Flush (NS 3 ml) 3 ml PER PROTOCOL IV ; Start 10/14/18 at 10:30 Aspirin (Aspirin) 81 mg DAILY PO Last administered on 10/15/18at 10:39; Admin Dose 81 MG; Start 10/15/18 at 09:00 Acetaminophen (Tylenol Tab) 650 mg Q6H PRN PO .PAIN 1-3 OR TEMP; Start 10/14/18 at 10:30 Heparin Sodium (Porcine) (Heparin (5000 Units/1ml)) 5,000 unit Q8 SC ; Start 10/14/18 at 14:00; Status Hold Pantoprazole (Protonix Iv) 40 mg BID@06,18 IV Last administered on 10/15/18at 05:52; Admin Dose 40 MG; Start 10/14/18 at 18:00 Alprazolam (Xanax) 0.5 mg Q12 PRN PO ANXIETY; Start 10/14/18 at 19:00 Multivitamins Therapeutic (Theragran) 1 tab DAILY PO Last administered on 10/15/18at 10:39; Admin Dose 1 TAB; Start 10/15/18 at 09:00 Quetiapine Fumarate (Seroquel) 25 mg HS PO Last administered on 10/14/18at 20:14; Admin Dose 25 MG; Start 10/14/18 at 21:00 Senna (Senokot) 1 tab QHS PRN PO CONSTIPATION; Start 10/14/18 at 19:00 Sodium Chloride 1,000 ml @ 75 mls/hr [id number] IV Last administered on 10/15/18at 09:20; Admin Dose 75 MLS/HR; Start 10/15/18 at 08:30 Allergies: Coded Allergies: No Known Allergy (Unverified , 10/14/18) Past Surgical History Past Surgical Hx: other (1. Brain surgery for tumor removal.2. Hysterectomy.3-lumbar laminectomy.4 right hip arthroplasty-) Social History Alcohol Use: none Smoking Status: Never smoker Drug Use: none Other Social History 6 para 6 ,1 miscarriage, 1 set of twins born by , 4 normal deliveries Exam/Review of Systems Exam Vitals Vital Signs Date Temp Pulse Resp B/P (MAP) Pulse Ox O2 O2 Flow FiO2 Time Delivery Rate 10/15/18 99.1 95 17 97/55 (69) 94 11:33 10/15/18 3.0 08:15 10/15/18 Nasal 06:00 Cannula Intake and Output 10/14/18 10/14/18 10/15/18 1515:00 23:00 07:00 IntakeIntake Total 2050 ml 600 ml OutputOutput Total 650 ml BalanceBalance 2050 ml -50 ml Psych: confusion Head: normocephalic Eyes: nl conjunctiva ENMT: nl external ears & nose Neck: supple, non-tender Respiratory: normal air movement; No wheezing Cardiovascular: jugular venous distention (JVD) Gastrointestinal: soft, surgical scars Genitourinary - Female: nl external genitalia, other (Pelvic exam: No mass and no discharge) Musculoskeletal: nl extremities to inspection, other (Patient has cast on her right ankle is) Extremities: No calf tenderness Neurological: confused Skin: nl turgor Results Result Diagram: 10/15/18 0558 10/15/18 0558 Results 24hrs Laboratory Tests Test 10/14/18 13:59 10/14/18 14:03 10/14/18 14:30 10/14/18 17:59 Sodium Level 142 Potassium Level 4.9 Chloride Level 105 Carbon Dioxide 29 Level Anion Gap 8 Blood Urea 44 H Nitrogen Creatinine 2.12 #H Est Glomerular Filtrat Rate mL/min Glucose Level 141 # Calcium Level 9.2 B-Type 5210 H Natriuretic Peptide Urine Color YELLOW Urine Clarity SLIGHTLY CLOUDY A Urine pH 5.0 Urine Specific 1.014 [place] Urine Ketones NEGATIVE Urine Nitrite NEGATIVE Urine Bilirubin NEGATIVE Urine NEGATIVE Urobilinogen Urine Leukocyte NEGATIVE Esterase Urine Microscopic 55 H RBC Urine Microscopic 7 H WBC Urine Bacteria FEW A Urine Mucus FEW A Urine Hemoglobin 3+ H Urine Random 72.72 Creatinine Urine Random 103 H Sodium Urine Glucose NEGATIVE Urine Total 49.0 H Protein Creatine Kinase 59 Creatine Kinase 4.8 Index Creatinine Kinase 2.86 H MB (Mass) Troponin I 1.270 *H Test 10/15/18 00:23 10/15/18 05:58 Creatine Kinase 62 Creatine Kinase 2.7 Index Creatinine Kinase 1.69 MB (Mass) Troponin I 1.160 *H 0.956 *H White Blood Count 15.0 H Red Blood Count 3.31 #L Hemoglobin 10.1 L Hematocrit 32.1 L Mean Corpuscular 97.0 Volume Mean Corpuscular 30.5 Hemoglobin Mean Corpuscular 31.5 L Hemoglobin Concen t Red Cell 13.5 Distribution Width Platelet Count 129 #L Mean Platelet 10.4 Volume Immature 0.700 H Granulocytes % Neutrophils % 83.5 H Lymphocytes % 8.7 L Monocytes % 5.7 Eosinophils % 1.1 Basophils % 0.3 Nucleated Red 0.0 Blood Cells % Immature 0.100 H Granulocytes # Neutrophils # 12.6 H Lymphocytes # 1.3 Monocytes # 0.9 Eosinophils # 0.2 Basophils # 0.1 Nucleated Red 0.0 Blood Cells # Sodium Level 147 H Potassium Level 5.0 Chloride Level 105 Carbon Dioxide 30 Level Anion Gap 12 Blood Urea 42 H Nitrogen Creatinine 1.56 H Est Glomerular Filtrat Rate mL/min Glucose Level 116 Calcium Level 8.9 Phosphorus Level 4.6 Magnesium Level 2.2 Total Bilirubin 0.6 Direct Bilirubin 0.00 Indirect 0.6 Bilirubin Aspartate Amino 24 Transf (AST/SGOT) Alanine 24 Aminotransferase (ALT/SGPT) Alkaline 59 Phosphatase Total Protein 6.6 # Albumin 3.4 # Globulin 3.20 Albumin/Globulin 1.06 Ratio Triglycerides 123 Level Cholesterol Level 161 LDL Cholesterol, 92 Calculated HDL Cholesterol 44 Cholesterol/HDL 3.[address] scan of the abdomen and pelvis: 1. Mild bilateral hydroureteronephrosis. Garcia catheter within decompressed bladder. No evidence of urolithiasis. Bilateral renal cysts. 2. Sigmoid diverticulosis without diverticulitis. 3. Status post hysterectomy, right hip arthroplasty, and lumbar laminectomy with posterior fixation. 4. Calcific atherosclerosis of the aorta and coronary arteries. Medications Medication Current Medications IV Flush (NS 3 ml) 3 ml PER PROTOCOL IV ; Start 10/14/18 at 10:30 Aspirin (Aspirin) 81 mg DAILY PO Last administered on 10/15/18at 10:39; Admin Dose 81 MG; Start 10/15/18 at 09:00 Acetaminophen (Tylenol Tab) 650 mg Q6H PRN PO .PAIN 1-3 OR TEMP; Start 10/14/18 at 10:30 Heparin Sodium (Porcine) (Heparin (5000 Units/1ml)) 5,000 unit Q8 SC ; Start 10/14/18 at 14:00; Status Hold Pantoprazole (Protonix Iv) 40 mg BID@06,18 IV Last administered on 10/15/18at 05:52; Admin Dose 40 MG; Start 10/14/18 at 18:00 Alprazolam (Xanax) 0.5 mg Q12 PRN PO ANXIETY; Start 10/14/18 at 19:00 Multivitamins Therapeutic (Theragran) 1 tab DAILY PO Last administered on 10/15/18at 10:39; Admin Dose 1 TAB; Start 10/15/18 at 09:00 Quetiapine Fumarate (Seroquel) 25 mg HS PO Last administered on 10/14/18at 20:14; Admin Dose 25 MG; Start 10/14/18 at 21:00 Senna (Senokot) 1 tab QHS PRN PO CONSTIPATION; Start 10/14/18 at 19:00 Sodium Chloride 1,000 ml @ 75 mls/hr [id number] IV Last administered on 10/15/18at 09:20; Admin Dose 75 MLS/HR; Start 10/15/18 at 08:30 INGRIS RAMOS MD Oct 15, 2018 13:09
--- NOTE | 2018-10-15 15:46 | PN ---
DATE: 10/15/2018 SUBJECTIVE: The patient remains confused. No other events overnight. Urinary output has been adequ ate. OBJECTIVE: VITAL SIGNS: Blood pressure is 137/63, respirations 16, pulse 94, temperature 99.4. HEENT: Head is normocephalic. NECK: Supple. HEART: Regular rate. LUNGS: Show diminished breath sounds at the base. ABDOMEN: Soft, nontender to palpation without rebound or guarding. EXTREMITIES: Negative for clubbing, cyanosis, no edema. DERMATOLOGIC: No rashes. MUSCULOSKELETAL: No joint effusion. NEUROLOGIC: No change in exam. MEDICATIONS: The patient's medications have been reviewed. LABORATORY DATA: Shows white count 15.0, hemoglobin 10.1, platelet count is 129. Sodium 147, BUN 42 , creatinine 1.56. The patient's troponins have been reviewed. ASSESSMENT AND PLAN: 1. Nonoliguric acute kidney injury with unknown baseline creatinine. Etiology is likely secondary t o obstructive uropathy. The patient's renal function has been improving after placement of Garcia cat heter. A repeat renal ultrasound shows no further evidence of obstruction. Will continue current tr eatment plans, supportive care, renally dose all meds. 2. Hyperkalemia secondary to acute kidney injury, obstructive uropathy, resolved. Continue to monit or. 3. Hypernatremia. The patient has a free water deficit of approximately 1.5 liters. Currently n.p. o. Will change IV fluids to half NS. Monitor sodium levels closely. 4. Bilateral hydronephrosis likely secondary to bladder outlet obstruction, improved after Garcia cat heter placement. Continue to monitor. 5. Mineral bone disorder. Monitor calcium and phosphorus levels. 6. Elevated troponin. Low suspicion for acute coronary syndrome per cardiology. Continue to monito r. 7. Acute encephalopathy on top of dementia. Etiology is toxic metabolic. Continue to monitor. 8. Leukocytosis, SIRS. The patient's white count remains elevated, currently on antibiotic therapy. Cultures have been reviewed, no growth to date. Will continue to monitor. Dictated By: MICHELLE ONEIL/SANDRA Conf#: [id number] DID#: [id number] CC: ZAIN PALOMARES;*EndCC*
--- NOTE | 2018-10-15 17:41 | CONS ---
Consult Date/Type/Reason Admit Date/Time Oct 14, 2018 at 09:12 Initial Consult Date 10/15/18 Requesting Provider: NOEMI EDGE Date/Time of Note DATE: 10/15/18 TIME: 17:39 Subjective Cardiology follow-up progress Subjective: Case discussed with the staff telemetry was reviewed patient remained sinus rhythm Patient has memory impairment but denies any chest pain or pressure to me denies any palpitation to me Objective: General: no acute distress HEENT: NC/AT. pupils are equal. round. NECK: NO JVD. no stridor. CV: RRR. systolic murmur; no gallop or rubs. PULM: no wheezing or rhonchi. GI: SOFT, NT, ND, no rebound or guarding Extremity: trace B/L LE edema. no clubbing. neuro: awake and alert, OX1. Psych: Anxious but pleasant rectal: deferred Objective Vitals Vital Signs Date Temp Pulse Resp B/P (MAP) Pulse Ox O2 O2 Flow FiO2 Time Delivery Rate 10/15/18 85 16:00 10/15/18 98.5 16 102/62 92 15:26 (75) 10/15/18 3.0 08:15 10/15/18 Nasal 06:00 Cannula Intake and Output 10/14/18 10/14/18 10/15/18 1515:00 23:00 07:00 IntakeIntake Total 2050 ml 600 ml OutputOutput Total 650 ml BalanceBalance 2050 ml -50 ml Results/Medications Result Diagram: 10/15/18 0558 10/15/18 0558 Results 24 hrs Laboratory Tests Test 10/14/18 17:59 10/15/18 00:23 10/15/18 05:58 Creatine Kinase 59 62 Creatine Kinase Index 4.8 2.7 Creatinine Kinase MB (Mass) 2.86 H 1.69 Troponin I 1.270 *H 1.160 *H 0.956 *H White Blood Count 15.0 H Red Blood Count 3.31 #L Hemoglobin 10.1 L Hematocrit 32.1 L Mean Corpuscular Volume 97.0 Mean Corpuscular Hemoglobin 30.5 Mean Corpuscular Hemoglobin Concent 31.5 L Red Cell Distribution Width 13.5 Platelet Count 129 #L Mean Platelet Volume 10.4 Immature Granulocytes % 0.700 H Neutrophils % 83.5 H Lymphocytes % 8.7 L Monocytes % 5.7 Eosinophils % 1.1 Basophils % 0.3 Nucleated Red Blood Cells % 0.0 Immature Granulocytes # 0.100 H Neutrophils # 12.6 H Lymphocytes # 1.3 Monocytes # 0.9 Eosinophils # 0.2 Basophils # 0.1 Nucleated Red Blood Cells # 0.0 Sodium Level 147 H Potassium Level 5.0 Chloride Level 105 Carbon Dioxide Level 30 Anion Gap 12 Blood Urea Nitrogen 42 H Creatinine 1.56 H Est Glomerular Filtrat Rate mL/min Glucose Level 116 Calcium Level 8.9 Phosphorus Level 4.6 Magnesium Level 2.2 Total Bilirubin 0.6 Direct Bilirubin 0.00 Indirect Bilirubin 0.6 Aspartate Amino Transf (AST/SGOT) 24 Alanine Aminotransferase (ALT/SGPT) 24 Alkaline Phosphatase 59 Total Protein 6.6 # Albumin 3.4 # Globulin 3.20 Albumin/Globulin Ratio 1.06 Triglycerides Level 123 Cholesterol Level 161 LDL Cholesterol, Calculated 92 HDL Cholesterol 44 Cholesterol/HDL Ratio 3.6 Home Meds Reported Medications Alprazolam* (Xanax*) 0.5 Mg Tab, 0.5 MG PO Q12 PRN for ANXIETY, TAB 10/14/18 Quetiapine Fumarate* (Seroquel*) 25 Mg Tablet, 25 MG PO HS, #30 TAB 10/14/18 Sennosides* (Senna Lax*) 8.6 Mg Tablet, 1 TAB PO QHS PRN for CONSTIPATION, TAB 10/14/18 Hydrocodone/Acetaminophen ([place] 5-325 Tablet) 1 Each Tablet, 1 EACH PO Q6 PRN for SEVERE PAIN LEVEL 7-10, TAB 10/14/18 Multivitamins* (Theragran*) 1 Tab Tab, 1 TAB PO DAILY, TAB 10/14/18 Melatonin (Melatonin ODT) 3 Mg Tab.rapdis, 3 MG PO HS, TAB 10/14/18 Heparin Sodium,Porcine/Pf (HEPARIN SOD 5,000 UNIT/ 0.5 ML) 5,000 Unit/0.5 Ml Vial, 5000 UNIT IJ Q12, VIAL 10/14/18 Gabapentin* (Gabapentin*) 600 Mg Tablet, 600 MG PO TID, #90 TAB 10/14/18 Mineral Oil* (Fleet* Mineral Oil Enema) 133 Ml Oil, 133 ML [place] NEEDED PRN for CONSTIPATION, ENEMA 10/14/18 Bisacodyl* (Bisacodyl*) 10 Mg Supp, 10 MG [place] Q48 PRN for CONSTIPATION, SUPP 10/14/18 Donepezil* (Donepezil*) 10 Mg Tablet, 10 MG PO DAILY, #30 TAB 10/14/18 Medications Current Medications IV Flush (NS 3 ml) 3 ml PER PROTOCOL IV ; Start 10/14/18 at 10:30 Aspirin (Aspirin) 81 mg DAILY PO Last administered on 10/15/18at 10:39; Admin Dose 81 MG; Start 10/15/18 at 09:00 Acetaminophen (Tylenol Tab) 650 mg Q6H PRN PO .PAIN 1-3 OR TEMP; Start 10/14/18 at 10:30 Heparin Sodium (Porcine) (Heparin (5000 Units/1ml)) 5,000 unit Q8 SC ; Start 10/14/18 at 14:00; Status Hold Pantoprazole (Protonix Iv) 40 mg BID@06,18 IV Last administered on 10/15/18at 05:52; Admin Dose 40 MG; Start 10/14/18 at 18:00 Alprazolam (Xanax) 0.5 mg Q12 PRN PO ANXIETY; Start 10/14/18 at 19:00 Multivitamins Therapeutic (Theragran) 1 tab DAILY PO Last administered on 10/15/18at 10:39; Admin Dose 1 TAB; Start 10/15/18 at 09:00 Quetiapine Fumarate (Seroquel) 25 mg HS PO Last administered on 10/14/18at 20:14; Admin Dose 25 MG; Start 10/14/18 at 21:00 Senna (Senokot) 1 tab QHS PRN PO CONSTIPATION; Start 10/14/18 at 19:00 Sodium Chloride 1,000 ml @ 75 mls/hr [id number] IV Last administered on 10/15/18at 09:20; Admin Dose 75 MLS/HR; Start 10/15/18 at 08:30 Assessment/Plan Hospital Course (Demo Recall) History elevation myocardial infarction: Likely type II Abnormal troponin secondary to above. Need to rule out other causes such as pulmonary embolus given her recent ankle surgery Acute renal failure improving Hydronephrosis Anemia Status post recent ankle surgery Recommendations I will order lower extremity ultrasound to rule out DVT I will also order a VQ scan to rule out PE Continue aggressive medical therapy Thank you for this referral. We will continue to follow along with you until Dr. Mccarty returns on Wednesday TRACE KURTZ MD [facility] TRACE KURTZ MD Oct 15, 2018 17:41
[2018-10-15] MEDS: QUETIAPINE 25 MG TAB PO SCH (20:45)
[2018-10-16] VITALS (17 sets, daily range): BP systolic 115–185; BP diastolic 57–98; PULSE 78–106; RESP 16–20
[2018-10-16] MEDS: PANTOPRAZOLE 40 MG INJ IV SCH ×2 (06:38→18:34)
[2018-10-16] MEDS: MULTIVITAMINS THERAPEUTIC TAB PO SCH (08:10)
[2018-10-16] MEDS: ASPIRIN 81 MG TAB PO SCH (08:10)
--- NOTE | 2018-10-16 11:38 | PN ---
DATE: 10/16/2018 SUBJECTIVE: The patient is stable, no events overnight. No fevers, chills, nausea, vomiting. OBJECTIVE: VITAL SIGNS: Blood pressure is 132/98, pulse 93, respiration 20, temperature 98.4. HEENT: Head is normocephalic. NECK: Supple. HEART: Regular rate. LUNGS: Show diminished breath sounds at the base. ABDOMEN: Soft, nontender to palpation without rebound or guarding. EXTREMITIES: Negative for clubbing, cyanosis, no edema. DERMATOLOGIC: No rashes. MUSCULOSKELETAL: No joint effusion. NEUROLOGIC: No change in exam. MEDICATIONS: Reviewed. LABORATORY DATA: Has been reviewed. Shows sodium 142, BUN 25, creatinine 0.94. White count 11.6, h emoglobin 9.9, platelet count is 143. ASSESSMENT AND PLAN: 1. Nonoliguric acute kidney injury with unknown baseline creatinine. Etiology secondary obstructive uropathy, possible component to hemodynamics. Renal function has improved after IV hydration and pl acement of a Garcia catheter. At this point, will continue to monitor. Will deescalate IV fluids, co ntinue current treatment plan. Continue supportive care. 2. Hyperkalemia secondary to obstructive uropathy, acute kidney injury, resolved. 3. Hypernatremia. The patient's sodium levels have improved. Continue to encourage free water inta ke. Will deescalate IV fluids. 4. Bilateral hydronephrosis secondary to urinary retention. The patient's hydronephrosis resolved a fter placement of Garcia catheter. The patient will be placed on voiding trial per Urology. 5. Mineral bone disorder, monitor calcium and phosphatase levels. 6. Elevated troponin, likely from demand ischemia. Continue to monitor. Appreciate cardiology eval uation. 7. Acute encephalopathy on top of dementia, etiology toxic metabolic. 8. Leukocytosis, SIRS. Continue to monitor. Dictated By: MICHELLE VARGHESE DO NR/NTS Conf#: [id number] DID#: [id number] CC: NOEMI EDGE MD; INGRIS RAMOS MD; ZAIN PALOMARES;*EndCC*
--- NOTE | 2018-10-16 11:57 | CONS ---
Consult Date/Type/Reason Admit Date/Time Oct 14, 2018 at 09:12 Initial Consult Date 10/15/18 Type of Consultation: Urology Reason for Consultation Urinary retention Requesting Provider: NOEMI EDGE Date/Time of Note DATE: 10/16/18 TIME: 11:51 Subjective The patient is confused. She has not voided since the catheter was removed over 6 hours ago. Her daughter and her caregiver are at her bedside. Objective Vitals Vital Signs Date Temp Pulse Resp B/P (MAP) Pulse Ox O2 O2 Flow FiO2 Time Delivery Rate 10/16/18 98.3 87 18 180/76 92 Nasal 11:28 (110) Cannula 10/16/18 3.0 08:15 Intake and Output 10/15/18 10/15/18 10/16/18 1515:00 23:00 07:00 IntakeIntake Total 200 ml 500 ml 1300 ml OutputOutput Total 800 ml 1000 ml BalanceBalance 200 ml -300 ml 300 ml Exam Abdomen is soft. Bladder is not palpable. She did have bilateral lower extremity ultrasound and that showed: 1. Extensive right lower extremity deep venous thrombosis from the popliteal region and through the common femoral vein. 2. Deep venous thrombosis in the left popliteal vein. Results/Medications Result Diagram: 10/16/18 0549 10/16/18 0549 Results 24 hrs Laboratory Tests Test 10/16/18 05:49 White Blood Count 11.6 #H Red Blood Count 3.26 L Hemoglobin 9.9 L Hematocrit 31.0 L Mean Corpuscular Volume 95.1 Mean Corpuscular Hemoglobin 30.4 Mean Corpuscular Hemoglobin Concent 31.9 L Red Cell Distribution Width 12.8 Platelet Count 143 Mean Platelet Volume 10.4 Immature Granulocytes % 1.000 H Neutrophils % 77.1 H Lymphocytes % 13.8 L Monocytes % 5.1 Eosinophils % 2.7 Basophils % 0.3 Nucleated Red Blood Cells % 0.0 Immature Granulocytes # 0.120 H Neutrophils # 9.0 H Lymphocytes # 1.6 Monocytes # 0.6 Eosinophils # 0.3 Basophils # 0.0 Nucleated Red Blood Cells # 0.0 Sodium Level 142 Potassium Level 3.6 Chloride Level 101 Carbon Dioxide Level 29 Anion Gap 12 Blood Urea Nitrogen 25 #H Creatinine 0.94 Est Glomerular Filtrat Rate mL/min Glucose Level 95 Calcium Level 8.3 L Phosphorus Level 3.4 Magnesium Level 1.9 Home Meds Reported Medications Alprazolam* (Xanax*) 0.5 Mg Tab, 0.5 MG PO Q12 PRN for ANXIETY, TAB 10/14/18 Quetiapine Fumarate* (Seroquel*) 25 Mg Tablet, 25 MG PO HS, #30 TAB 10/14/18 Sennosides* (Senna Lax*) 8.6 Mg Tablet, 1 TAB PO QHS PRN for CONSTIPATION, TAB 10/14/18 Hydrocodone/Acetaminophen ([place] 5-325 Tablet) 1 Each Tablet, 1 EACH PO Q6 PRN for SEVERE PAIN LEVEL 7-10, TAB 10/14/18 Multivitamins* (Theragran*) 1 Tab Tab, 1 TAB PO DAILY, TAB 10/14/18 Melatonin (Melatonin ODT) 3 Mg Tab.rapdis, 3 MG PO HS, TAB 10/14/18 Heparin Sodium,Porcine/Pf (HEPARIN SOD 5,000 UNIT/ 0.5 ML) 5,000 Unit/0.5 Ml Vial, 5000 UNIT IJ Q12, VIAL 10/14/18 Gabapentin* (Gabapentin*) 600 Mg Tablet, 600 MG PO TID, #90 TAB 10/14/18 Mineral Oil* (Fleet* Mineral Oil Enema) 133 Ml Oil, 133 ML [place] NEEDED PRN for CONSTIPATION, ENEMA 10/14/18 Bisacodyl* (Bisacodyl*) 10 Mg Supp, 10 MG [place] Q48 PRN for CONSTIPATION, SUPP 10/14/18 Donepezil* (Donepezil*) 10 Mg Tablet, 10 MG PO DAILY, #30 TAB 10/14/18 Medications Current Medications IV Flush (NS 3 ml) 3 ml PER PROTOCOL IV ; Start 10/14/18 at 10:30 Aspirin (Aspirin) 81 mg DAILY PO Last administered on 10/16/18at 08:10; Admin Dose 81 MG; Start 10/15/18 at 09:00 Acetaminophen (Tylenol Tab) 650 mg Q6H PRN PO .PAIN 1-3 OR TEMP; Start 10/14/18 at 10:30 Heparin Sodium (Porcine) (Heparin (5000 Units/1ml)) 5,000 unit Q8 SC ; Start 10/14/18 at 14:00; Status Hold Pantoprazole (Protonix Iv) 40 mg BID@06,18 IV Last administered on 10/16/18at 06:38; Admin Dose 40 MG; Start 10/14/18 at 18:00 Multivitamins Therapeutic (Theragran) 1 tab DAILY PO Last administered on 10/16/18at 08:10; Admin Dose 1 TAB; Start 10/15/18 at 09:00 Quetiapine Fumarate (Seroquel) 25 mg HS PO Last administered on 10/15/18at 20:45; Admin Dose 25 MG; Start 10/14/18 at 21:00 Senna (Senokot) 1 tab QHS PRN PO CONSTIPATION; Start 10/14/18 at 19:00 Sodium Chloride 1,000 ml @ 20 mls/hr Q24H IV Last administered on 10/15/18at 20:48; Admin Dose 75 MLS/HR; Start 10/15/18 at 08:30 Assessment/Plan Hospital Course (Demo Recall) 83-year-old female with past medical history of Alzheimer's dementia was at [facility] due to a right ankle fracture for rehabilitation. The patient was found to be hypoxic. The patient was saturating apparently 70% and required 2 L of nasal cannula with improvement in the pulse oximetry. The patient also had an episode of coffee-ground emesis. The patient had a distended abdomen and appeared clammy as per the patient's daughter. Therefore, 911 was called and the patient was brought to the emergency room for further evaluation. The patient had significant abdominal distention that improved with Garcia catheter insertion that drained 1600 mL of urine. The patient was also noticed to have elevated troponins and leukocytosis. The patient was also noticed to be in acute kidney injury. The patient underwent a CT scan of the abdomen and pelvis that was showing mild bilateral hydroureteronephrosis and sigmoid diverticulosis without diverticulitis. The patient was also noticed to have a hyperkalemia with a potassium of 5.5 Because of the urinary retention and the hydronephrosis a urological consultation was requested. I did see the patient with HER-2 daughters at her bedside. The daughter states that patient prior to falling and sustaining the ankle fracture she was able to walk to the bathroom and urinate without any problem and she did not have any incontinence and was not wearing any diaper. While at the [facility] since she was not allowed to weightbearing on her right ankle she was not able to go to the bathroom and they have a diaper on her. She according to her daughter was holding her urine because she did not want to urinate in the diaper. Her hydronephrosis is secondary to her urinary retention. The retention itself could be secondary to her being constipated, trying to hold her urine, pain medications and other side effect of medications. She may even have had a problem before where she was not emptying her bladder but she was urinating? I would not put her on Urecholine since he has had a history of seizures as the Urecholine could trigger seizures. The Garcia catheter was removed this morning and she has not voided yet. The nurse will be doing bladder scan on her and do straight cath for a postvoid residual of 300 mL or more and if she does not void and the bladder scan shows over 500 mL she would do straight cath as well. The patient did have bilateral lower extremity ultrasound and that showed DVT: 1. Extensive right lower extremity deep venous thrombosis from the popliteal region and through the common femoral vein. 2. Deep venous thrombosis in the left popliteal vein. Hospitalist will order anticoagulation treatment. Urologically continue the in and out cath as ordered INGRIS RAMOS MD Oct 16, 2018 11:57
--- NOTE | 2018-10-16 15:43 | CONS ---
Consult Date/Type/Reason Admit Date/Time Oct 14, 2018 at 09:12 Initial Consult Date 10/15/18 Type of Consultation: Urology Requesting Provider: NOEMI VERA Date/Time of Note DATE: 10/16/18 TIME: 15:41 Subjective Cardiology follow-up progress Subjective: Case discussed with the staff telemetry was reviewed patient remained sinus rhythm Patient has memory impairment but denies any chest pain or pressure to me denies any palpitation to me d/w Dr Vera Objective: General: no acute distress HEENT: NC/AT. pupils are equal. round. NECK: NO JVD. no stridor. CV: RRR. systolic murmur; no gallop or rubs. PULM: no wheezing or rhonchi. GI: SOFT, NT, ND, no rebound or guarding Extremity: trace B/L LE edema. no clubbing. neuro: awake and alert, OX1. Psych: Anxious but pleasant rectal: deferred LE U/S + DVT Objective Vitals Vital Signs Date Temp Pulse Resp B/P (MAP) Pulse Ox O2 O2 Flow FiO2 Time Delivery Rate 10/16/18 98.3 86 18 153/70 96 Nasal 15:35 (97) Cannula 10/16/18 3.0 08:15 Intake and Output 10/15/18 10/15/18 10/16/18 1515:00 23:00 07:00 IntakeIntake Total 200 ml 500 ml 1300 ml OutputOutput Total 800 ml 1000 ml BalanceBalance 200 ml -300 ml 300 ml Results/Medications Result Diagram: 10/16/18 0549 10/16/18 0549 Results 24 hrs Laboratory Tests Test 10/16/18 05:49 White Blood Count 11.6 #H Red Blood Count 3.26 L Hemoglobin 9.9 L Hematocrit 31.0 L Mean Corpuscular Volume 95.1 Mean Corpuscular Hemoglobin 30.4 Mean Corpuscular Hemoglobin Concent 31.9 L Red Cell Distribution Width 12.8 Platelet Count 143 Mean Platelet Volume 10.4 Immature Granulocytes % 1.000 H Neutrophils % 77.1 H Lymphocytes % 13.8 L Monocytes % 5.1 Eosinophils % 2.7 Basophils % 0.3 Nucleated Red Blood Cells % 0.0 Immature Granulocytes # 0.120 H Neutrophils # 9.0 H Lymphocytes # 1.6 Monocytes # 0.6 Eosinophils # 0.3 Basophils # 0.0 Nucleated Red Blood Cells # 0.0 Sodium Level 142 Potassium Level 3.6 Chloride Level 101 Carbon Dioxide Level 29 Anion Gap 12 Blood Urea Nitrogen 25 #H Creatinine 0.94 Est Glomerular Filtrat Rate mL/min Glucose Level 95 Calcium Level 8.3 L Phosphorus Level 3.4 Magnesium Level 1.9 Home Meds Reported Medications Alprazolam* (Xanax*) 0.5 Mg Tab, 0.5 MG PO Q12 PRN for ANXIETY, TAB 10/14/18 Quetiapine Fumarate* (Seroquel*) 25 Mg Tablet, 25 MG PO HS, #30 TAB 10/14/18 Sennosides* (Senna Lax*) 8.6 Mg Tablet, 1 TAB PO QHS PRN for CONSTIPATION, TAB 10/14/18 Hydrocodone/Acetaminophen ([place] 5-325 Tablet) 1 Each Tablet, 1 EACH PO Q6 PRN for SEVERE PAIN LEVEL 7-10, TAB 10/14/18 Multivitamins* (Theragran*) 1 Tab Tab, 1 TAB PO DAILY, TAB 10/14/18 Melatonin (Melatonin ODT) 3 Mg Tab.rapdis, 3 MG PO HS, TAB 10/14/18 Heparin Sodium,Porcine/Pf (HEPARIN SOD 5,000 UNIT/ 0.5 ML) 5,000 Unit/0.5 Ml Vial, 5000 UNIT IJ Q12, VIAL 10/14/18 Gabapentin* (Gabapentin*) 600 Mg Tablet, 600 MG PO TID, #90 TAB 10/14/18 Mineral Oil* (Fleet* Mineral Oil Enema) 133 Ml Oil, 133 ML [place] NEEDED PRN for CONSTIPATION, ENEMA 10/14/18 Bisacodyl* (Bisacodyl*) 10 Mg Supp, 10 MG [place] Q48 PRN for CONSTIPATION, SUPP 10/14/18 Donepezil* (Donepezil*) 10 Mg Tablet, 10 MG PO DAILY, #30 TAB 10/14/18 Medications Current Medications IV Flush (NS 3 ml) 3 ml PER PROTOCOL IV ; Start 10/14/18 at 10:30 Aspirin (Aspirin) 81 mg DAILY PO Last administered on 10/16/18at 08:10; Admin Dose 81 MG; Start 10/15/18 at 09:00 Acetaminophen (Tylenol Tab) 650 mg Q6H PRN PO .PAIN 1-3 OR TEMP; Start 10/14/18 at 10:30 Heparin Sodium (Porcine) (Heparin (5000 Units/1ml)) 5,000 unit Q8 SC ; Start 10/14/18 at 14:00; Status Hold Pantoprazole (Protonix Iv) 40 mg BID@06,18 IV Last administered on 10/16/18at 06:38; Admin Dose 40 MG; Start 10/14/18 at 18:00 Multivitamins Therapeutic (Theragran) 1 tab DAILY PO Last administered on 10/16/18at 08:10; Admin Dose 1 TAB; Start 10/15/18 at 09:00 Quetiapine Fumarate (Seroquel) 25 mg HS PO Last administered on 10/15/18at 20:45; Admin Dose 25 MG; Start 10/14/18 at 21:00 Senna (Senokot) 1 tab QHS PRN PO CONSTIPATION; Start 10/14/18 at 19:00 Sodium Chloride 1,000 ml @ 20 mls/hr Q24H IV Last administered on 10/15/18at 20:48; Admin Dose 75 MLS/HR; Start 10/15/18 at 08:30 Assessment/Plan Hospital Course (Demo Recall) Elevated trop c/w NSTEMI Likely type II. OR probably from PE. Abnormal troponin secondary to above. Need to rule out other causes such as pulmonary embolus given her recent ankle surgery Acute renal failure improving Hydronephrosis Anemia Status post recent ankle surgery DVT, R/O PE Recommendations lower extremity ultrasound C/W DVT I have also order a VQ scan to rule out PE Continue aggressive medical therapy d/w Dr Vera . heprarin drip for now and close monitoring for GI bleed. may need a IVC filter if unable to tolerate anticoagulation Thank you for this referral. We will continue to follow along with you until Dr. Mccarty returns on Wednesday TRACE KURTZ MD [facility] TRACE KURTZ MD Oct 16, 2018 15:43
[2018-10-16] MEDS ORDERED: HEPARIN 1000 UNITS/ML 10 ML INJ IV PRN ×2 (17:00)
[2018-10-16] MEDS ORDERED: HEPARIN 1000 UNITS/ML 10 ML INJ IV ONE (17:00)
--- NOTE | 2018-10-16 17:02 | PN ---
Date/Time of Note Date/Time of Note DATE: 10/16/18 TIME: 16:58 Assessment/Plan VTE Prophylaxis Risk score (from Nsg)>0 risk: 10 Pharmacological prophylaxis: heparin Lines/Catheters IV Catheter Type (from Nrsg): Peripheral IV Assessment/Plan Hospital Course NSTEMI likely type II secondary to demand and/or PE -Cardiology consultation appreciated -Echo with preserved EF Bilateral DVT with likely PE -Heparin drip started Acute kidney injury likely secondary to obstructive uropathy from neurogenic bladder-resolved -Nephrology consultation appreciated -Patient status post Garcia catheter placement with a significant amount of urine output Urinary retention likely secondary to neurogenic bladder from dementia -Status post Garcia catheter placement and removal, patient has not voided since Garcia has been removed -Urology consultation appreciated, continue to assess PVR -CT scan of the abdomen and pelvis showing mild bilateral hydroureteronephrosis. Hyperkalemia secondary to acute kidney injury-resolved Alzheimer's dementia. -DC Aricept as patient's primary has recently discontinued this medication as patient's dementia is too severe for any benefit History of brain mass status post resection -Patient has been on gabapentin for the past year for seizure prophylaxis, patient has never actually had a seizure and have discontinued gabapentin as this may be contributing to neurogenic bladder, have discussed risks and benefits of discontinuing gabapentin with patient's daughter and she agrees with discontinuing Recent right ankle fracture. -Status post plaster cast placement. Hematemesis-resolved -Continue PPI -Monitor -No indication for GI consultation at this time Prophylaxis: Heparin Result Diagram: 10/16/18 0549 10/16/18 0549 Results 24hrs Laboratory Tests Test 10/16/18 05:49 White Blood Count 11.6 #H Red Blood Count 3.26 L Hemoglobin 9.9 L Hematocrit 31.0 L Mean Corpuscular Volume 95.1 Mean Corpuscular Hemoglobin 30.4 Mean Corpuscular Hemoglobin Concent 31.9 L Red Cell Distribution Width 12.8 Platelet Count 143 Mean Platelet Volume 10.4 Immature Granulocytes % 1.000 H Neutrophils % 77.1 H Lymphocytes % 13.8 L Monocytes % 5.1 Eosinophils % 2.7 Basophils % 0.3 Nucleated Red Blood Cells % 0.0 Immature Granulocytes # 0.120 H Neutrophils # 9.0 H Lymphocytes # 1.6 Monocytes # 0.6 Eosinophils # 0.3 Basophils # 0.0 Nucleated Red Blood Cells # 0.0 Sodium Level 142 Potassium Level 3.6 Chloride Level 101 Carbon Dioxide Level 29 Anion Gap 12 Blood Urea Nitrogen 25 #H Creatinine 0.94 Est Glomerular Filtrat Rate mL/min Glucose Level 95 Calcium Level 8.3 L Phosphorus Level 3.4 Magnesium Level 1.9 Subjective 24 Hr Interval Summary Constitutional: disoriented Exam/Review of Systems Exam Vitals Vital Signs Date Temp Pulse Resp B/P (MAP) Pulse Ox O2 O2 Flow FiO2 Time Delivery Rate 10/16/18 98 16:00 10/16/18 98.3 18 153/70 96 Nasal 15:35 (97) Cannula 10/16/18 3.0 08:15 Intake and Output 10/15/18 10/15/18 10/16/18 1515:00 23:00 07:00 IntakeIntake Total 200 ml 500 ml 1300 ml OutputOutput Total 800 ml 1000 ml BalanceBalance 200 ml -300 ml 300 ml Psych: confusion Respiratory: clear to auscultation Cardiovascular: regular rate and rhythm Gastrointestinal: soft; No distended Musculoskeletal: nl extremities to inspection Results Results 24hrs Laboratory Tests Test 10/16/18 05:49 White Blood Count 11.6 #H Red Blood Count 3.26 L Hemoglobin 9.9 L Hematocrit 31.0 L Mean Corpuscular Volume 95.1 Mean Corpuscular Hemoglobin 30.4 Mean Corpuscular Hemoglobin Concent 31.9 L Red Cell Distribution Width 12.8 Platelet Count 143 Mean Platelet Volume 10.4 Immature Granulocytes % 1.000 H Neutrophils % 77.1 H Lymphocytes % 13.8 L Monocytes % 5.1 Eosinophils % 2.7 Basophils % 0.3 Nucleated Red Blood Cells % 0.0 Immature Granulocytes # 0.120 H Neutrophils # 9.0 H Lymphocytes # 1.6 Monocytes # 0.6 Eosinophils # 0.3 Basophils # 0.0 Nucleated Red Blood Cells # 0.0 Sodium Level 142 Potassium Level 3.6 Chloride Level 101 Carbon Dioxide Level 29 Anion Gap 12 Blood Urea Nitrogen 25 #H Creatinine 0.94 Est Glomerular Filtrat Rate mL/min Glucose Level 95 Calcium Level 8.3 L Phosphorus Level 3.4 Magnesium Level 1.9 Medications Medication Current Medications IV Flush (NS 3 ml) 3 ml PER PROTOCOL IV ; Start 10/14/18 at 10:30 Aspirin (Aspirin) 81 mg DAILY PO Last administered on 10/16/18at 08:10; Admin D ose 81 MG; Start 10/15/18 at 09:00 Acetaminophen (Tylenol Tab) 650 mg Q6H PRN PO .PAIN 1-3 OR TEMP; Start 10/14/18 at 10:30 Heparin Sodium (Porcine) (Heparin (5000 Units/1ml)) 5,000 unit Q8 SC ; Start 10/14/18 at 14:00; Status Hold Pantoprazole (Protonix Iv) 40 mg BID@06,18 IV Last administered on 10/16/18at 06:38; Admin Dose 40 MG; Start 10/14/18 at 18:00 Multivitamins Therapeutic (Theragran) 1 tab DAILY PO Last administered on 10/16/18at 08:10; Admin Dose 1 TAB; Start 10/15/18 at 09:00 Quetiapine Fumarate (Seroquel) 25 mg HS PO Last administered on 10/15/18at 20:45; Admin Dose 25 MG; Start 10/14/18 at 21:00 Senna (Senokot) 1 tab QHS PRN PO CONSTIPATION; Start 10/14/18 at 19:00 Sodium Chloride 1,000 ml @ 20 mls/hr Q24H IV Last administered on 10/15/18at 20:48; Admin Dose 75 MLS/HR; Start 10/15/18 at 08:30 Miscellaneous Information (* Miscellaneous Pharmacy Order) DC previous hepa... ONCE ONCE XX ; Start 10/16/18 at 17:00; Stop 10/16/18 at 17:01; Status UNV Heparin Sodium (Porcine) (Heparin (1000 Units/ml)) 5,400 unit ONCE ONCE IV ; Start 10/16/18 at 17:00; Stop 10/16/18 at 17:01; Status UNV Heparin Sodium (Porcine) (Heparin (1000 Units/ml)) 5,400 unit PER PROTOCOL PRN IV aPTT<47; Start 10/16/18 at 17:00; Status UNV Heparin Sodium (Porcine) (Heparin (1000 Units/ml)) 2,700 unit PER PROTOCOL PRN IV aPTT<47-57; Start 10/16/18 at 17:00; Status UNV Heparin Sodium (Porcine) 250 ml @ 0 mls/hr PER PROTOCOL IV ; Start 10/16/18 at 17:00; Status UNV NOEMI EDGEb 17, 2019 17:02
[2018-10-16] MEDS: SOD CHLORIDE 0.45% 1,000 ML IV SCH (18:44)
[2018-10-16] MEDS: HEPARIN 25000 UNITS/250 ML 250 ML IV SCH (18:51)
[2018-10-16] MEDS ORDERED: traZODone 50 MG TAB PO PRN (20:30)
[2018-10-16] MEDS: QUETIAPINE 25 MG TAB PO SCH (20:43)
[2018-10-17] VITALS (16 sets, daily range): BP systolic 108–180; BP diastolic 56–86; PULSE 83–102; RESP 16–18
[2018-10-17] MEDS ORDERED: HYDROCODONE/APAP (5/325) TAB PO ONE
[2018-10-17] MEDS ORDERED: HYDROCODONE/APAP (5/325) TAB PO PRN (02:30)
[2018-10-17] MEDS ORDERED: DIPHENHYDRAMINE 25 MG CAP PO ONE (03:00)
[2018-10-17] MEDS ORDERED: HALOPERIDOL 5 MG INJ IM ONE (05:00)
[2018-10-17] MEDS: PANTOPRAZOLE 40 MG INJ IV SCH (06:57)
--- NOTE | 2018-10-17 07:42 | CONS ---
Assessment/Plan Assessment/Plan Assessment/Plan (Daily) Elevated trop c/w NSTEMI Likely type II. OR probably from PE. Abnormal troponin secondary to above. Acute renal failure improving Hydronephrosis Anemia Status post recent ankle surgery DVT, R/O PE Recommendations lower extremity ultrasound C/W DVT VQ scan to rule out PE Continue aggressive medical therapy d/w Dr Vera . heprarin drip for now and close monitoring for GI bleed. may need a IVC filter if unable to tolerate anticoagulation Would rx Elqiuis and stop heparin if agreeable with primary service. Consultation Date/Type/Reason Admit Date/Time Oct 14, 2018 at 09:12 Initial Consult Date 10/15/18 Type of Consult Cardiology Requesting Provider: NOEMI VERA Date/Time of Note DATE: 10/17/18 TIME: 07:40 24 HR Interval Summary Free Text/Dictation The patient with no change overnight Exam/Review of Systems Vital Signs Vitals Vital Signs Date Temp Pulse Resp B/P (MAP) Pulse Ox O2 O2 Flow FiO2 Time Delivery Rate 10/17/18 98.3 83 17 143/84 92 07:18 (103) 10/16/18 3.0 20:00 10/16/18 Nasal 15:35 Cannula Intake and Output 10/16/18 10/16/18 10/17/18 1414:59 22:59 06:59 IntakeIntake Total 1300 ml 480 ml 750 ml OutputOutput Total 1000 ml 750 ml 928 ml BalanceBalance 300 ml -270 ml -178 ml Labs Result Diagram: 10/16/18 0549 10/17/18 0524 Results 24hrs Laboratory Tests Test 10/16/18 17:48 10/17/18 01:01 10/17/18 05:24 Prothrombin Time 14.3 Prothrombin Time Ratio 1.1 INR International Normalized Ratio 1.10 Activated Partial Thromboplast Time 31.4 > 180.0 *H 51.4 H Sodium Level 142 Potassium Level 3.5 Chloride Level 101 Carbon Dioxide Level 27 Anion Gap 14 H Blood Urea Nitrogen 18 Creatinine 0.80 Est Glomerular Filtrat Rate mL/min Glucose Level 95 Calcium Level 8.3 L Phosphorus Level 3.5 Magnesium Level 1.9 Medications Medications Current Medications IV Flush (NS 3 ml) 3 ml PER PROTOCOL IV ; Start 10/14/18 at 10:30 Aspirin (Aspirin) 81 mg DAILY PO Last administered on 10/16/18 08:10; Admin Dose 81 MG; Start 10/15/18 at 09:00 Acetaminophen (Tylenol Tab) 650 mg Q6H PRN PO .PAIN 1-3 OR TEMP; Start 10/14/18 at 10:30 Pantoprazole (Protonix Iv) 40 mg BID@06,18 IV Last administered on 10/17/18 06:57; Admin Dose 40 MG; Start 10/14/18 at 18:00 Multivitamins Therapeutic (Theragran) 1 tab DAILY PO Last administered on 10/16/18 08:10; Admin Dose 1 TAB; Start 10/15/18 at 09:00 Quetiapine Fumarate (Seroquel) 25 mg HS PO Last administered on 10/16/18 20:43; Admin Dose 25 MG; Start 10/14/18 at 21:00 Senna (Senokot) 1 tab QHS PRN PO CONSTIPATION Last administered on 10/17/18 0 6:57; Admin Dose 1 TAB; Start 10/14/18 at 19:00 Sodium Chloride 1,000 ml @ 20 mls/hr Q24H IV Last administered on 10/16/18 18:44; Admin Dose 20 MLS/HR; Start 10/15/18 at 08:30 Heparin Sodium (Porcine) (Heparin (1000 Units/ml)) 5,400 unit PER PROTOCOL PRN IV aPTT<47; Start 10/16/18 at 17:00 Heparin Sodium (Porcine) (Heparin (1000 Units/ml)) 2,700 unit PER PROTOCOL PRN IV aPTT<47-57; Start 10/16/18 at 17:00 Heparin Sodium (Porcine) 250 ml @ 0 mls/hr PER PROTOCOL IV Last administered on 10/16/18 18:51; Admin Dose 12 MLS/HR; Start 10/16/18 at 17:00 Trazodone HCl (Desyrel) 50 mg HS PRN PO INSOMNIA Last administered on 10/16/18 20:43; Admin Dose 50 MG; Start 10/16/18 at 20:30 Acetaminophen/ Hydrocodone Bitart ([place] (5/325)) 1 tab Q4H PRN PO MODERATE PAIN LEVEL 4-10; Start 10/17/18 at 02:30 NINA WOODS MD Oct 17, 2018 07:42
--- NOTE | 2018-10-17 09:13 | PN ---
DATE: 10/17/2018 SUBJECTIVE: The patient is stable, no events overnight. OBJECTIVE: VITAL SIGNS: Blood pressure is 143/84, pulse 83, respirations 17, temperature 98.3. HEENT: Head is normocephalic. NECK: Supple. HEART: Regular rate. LUNGS: Show diminished breath sounds at the base. ABDOMEN: Soft, nontender to palpation without rebound or guarding. EXTREMITIES: Negative for clubbing, cyanosis, no edema. DERMATOLOGIC: No rashes. MUSCULOSKELETAL: No joint effusion. NEUROLOGIC: No change in exam. MEDICATIONS: Reviewed. LABORATORY DATA: From 10/17/2018 was reviewed. ASSESSMENT AND PLAN: 1. Nonoliguric acute kidney injury with unknown baseline creatinine. Etiology was likely secondary to obstructive uropathy. Renal function has improved after placement of Garcia catheter. Continue cu rrent treatment plan, supportive care, renally dose all medicines. 2. Hyperkalemia secondary obstructive uropathy, resolved. 3. Hypernatremia, improved. Continue to encourage free water intake. 4. Bilateral hydronephrosis secondary to urinary retention, resolved. Continue to monitor. Continu e voiding trials per Urology. 5. Mineral bone disorder. Monitor calcium and phosphorus levels. 6. Acute encephalopathy on top of dementia. 7. Leukocytosis, systemic inflammatory response syndrome. Dictated By: MICHELLE VARGHESE DO NR/NTS Conf#: [id number] DID#: [id number] CC: ZAIN PALOMARES; INGRIS RAMOS MD; NOEMI EDGE MD;*EndCC*
[2018-10-17] MEDS: ASPIRIN 81 MG TAB PO SCH (10:59)
[2018-10-17] MEDS: MULTIVITAMINS THERAPEUTIC TAB PO SCH (10:59)
--- NOTE | 2018-10-17 12:25 | PN ---
Date/Time of Note Date/Time of Note DATE: 10/17/18 TIME: 12:22 Assessment/Plan VTE Prophylaxis Risk score (from Nsg)>0 risk: 9 Pharmacological prophylaxis: heparin Lines/Catheters IV Catheter Type (from Nrsg): Peripheral IV Urinary Cath still in place: No (no f/c) Assessment/Plan Hospital Course NSTEMI likely type II secondary to demand and/or PE -Cardiology consultation appreciated -Echo with preserved EF Bilateral DVT with likely PE -Heparin drip started -Follow-up VQ scan -Pulmonology consultation obtained Acute kidney injury likely secondary to obstructive uropathy from neurogenic bladder-resolved -Nephrology consultation appreciated -Patient status post Garcia catheter placement with a significant amount of urine output Urinary retention likely secondary to neurogenic bladder from dementia -Status post Garcia catheter placement and removal, patient is now voiding -Urology consultation appreciated, continue to assess PVR -CT scan of the abdomen and pelvis did show mild bilateral hydrouret eronephrosis. Hyperkalemia secondary to acute kidney injury-resolved Alzheimer's dementia. -DC Aricept as patient's primary has recently discontinued this medication as patient's dementia is too severe for any benefit History of brain mass status post resection -Patient has been on gabapentin for the past year for seizure prophylaxis, patient has never actually had a seizure and have discontinued gabapentin as this may be contributing to neurogenic bladder, have discussed risks and benefits of discontinuing gabapentin with patient's daughter and she agrees with discontinuing History of recent right ankle fracture -Status post plaster cast placement. Hematemesis-resolved -Continue PPI -Monitor -No indication for GI consultation at this time Prophylaxis: Heparin DC planning: Follow-up on VQ scan and pulmonology recommendations, urinary retention seems to be improving, patient resides in a halfway facility and anticipate discharge back to the facility in the coming days Result Diagram: 10/16/18 0549 10/17/18 0524 Results 24hrs Laboratory Tests Test 10/16/18 17:48 10/17/18 01:01 10/17/18 05:24 Prothrombin Time 14.3 Prothrombin Time Ratio 1.1 INR International Normalized Ratio 1.10 Activated Partial Thromboplast Time 31.4 > 180.0 *H 51.4 H Sodium Level 142 Potassium Level 3.5 Chloride Level 101 Carbon Dioxide Level 27 Anion Gap 14 H Blood Urea Nitrogen 18 Creatinine 0.80 Est Glomerular Filtrat Rate mL/min Glucose Level 95 Calcium Level 8.3 L Phosphorus Level 3.5 Magnesium Level 1.9 Subjective 24 Hr Interval Summary Constitutional: disoriented Exam/Review of Systems Exam Vitals Vital Signs Date Temp Pulse Resp B/P (MAP) Pulse Ox O2 O2 Flow FiO2 Time Delivery Rate 10/17/18 97.8 100 17 155/74 91 11:09 (101) 10/16/18 3.0 20:00 10/16/18 Nasal 15:35 Cannula Intake and Output 10/16/18 10/16/18 10/17/18 1515:00 23:00 07:00 IntakeIntake Total 480 ml 750 ml OutputOutput Total 750 ml 928 ml BalanceBalance -270 ml -178 ml Psych: confusion Respiratory: clear to auscultation Cardiovascular: regular rate and rhythm Gastrointestinal: soft; No distended Musculoskeletal: nl extremities to inspection Results Results 24hrs Laboratory Tests Test 10/16/18 17:48 10/17/18 01:01 10/17/18 05:24 Prothrombin Time 14.3 Prothrombin Time Ratio 1.1 INR International Normalized Ratio 1.10 Activated Partial Thromboplast Time 31.4 > 180.0 *H 51.4 H Sodium Level 142 Potassium Level 3.5 Chloride Level 101 Carbon Dioxide Level 27 Anion Gap 14 H Blood Urea Nitrogen 18 Creatinine 0.80 Est Glomerular Filtrat Rate mL/min Glucose Level 95 Calcium Level 8.3 L Phosphorus Level 3.5 Magnesium Level 1.9 Medications Medication Current Medications IV Flush (NS 3 ml) 3 ml PER PROTOCOL IV ; Start 10/14/18 at 10:30 Aspirin (Aspirin) 81 mg DAILY PO Last administered on 10/17/18at 10:59; Admin Dose 81 MG; Start 10/15/18 at 09:00 Acetaminophen (Tylenol Tab) 650 mg Q6H PRN PO .PAIN 1-3 OR TEMP; Start 10/14/18 at 10:30 Pantoprazole (Protonix Iv) 40 mg BID@,18 IV Last administered on 10/17/18at 06:57; Admin Dose 40 MG; Start 10/14/18 at 18:00 Multivitamins Therapeutic (Theragran) 1 tab DAILY PO Last administered on 10/17/18at 10:59; Admin Dose 1 TAB; Start 10/15/18 at 09:00 Quetiapine Fumarate (Seroquel) 25 mg HS PO Last administered on 10/16/18 20:43; Admin Dose 25 MG; Start 10/14/18 at 21:00 Senna (Senokot) 1 tab QHS PRN PO CONSTIPATION Last administered on 10/17/18 06:57; Admin Dose 1 TAB; Start 10/14/18 at 19:00 Heparin Sodium (Porcine) (Heparin (1000 Units/ml)) 5,400 unit PER PROTOCOL PRN IV aPTT<47; Start 10/16/18 at 17:00 Heparin Sodium (Porcine) (Heparin (1000 Units/ml)) 2,700 unit PER PROTOCOL PRN IV aPTT<47-57; Start 10/16/18 at 17:00 Heparin Sodium (Porcine) 250 ml @ 0 mls/hr PER PROTOCOL IV Last administered on 10/16/18 18:51; Admin Dose 12 MLS/HR; Start 10/16/18 at 17:00 Trazodone HCl (Desyrel) 50 mg HS PRN PO INSOMNIA Last administered on 10/16/18at 20:43; Admin Dose 50 MG; Start 10/16/18 at 20:30 Acetaminophen/ Hydrocodone Bitart ([place] (5/325)) 1 tab Q4H PRN PO MODERATE PAIN LEVEL 4-10; Start 10/17/18 at 02:30 NOEMI EDGE Oct 17, 2018 12:25
--- NOTE | 2018-10-17 16:46 | CONS ---
DATE OF ADMISSION: 10/14/2018 DATE OF CONSULTATION: TYPE OF CONSULTATION: Pulmonary. REASON FOR CONSULTATION: Shortness of breath. Thank you, Dr. Vera, for this consultation. HISTORY OF PRESENT ILLNESS: This is an unfortunate 83-year-old lady with a history of dementia, ankl e fracture, transferred from long-term facility for evaluation of hypoxemia, found to have non- ST elevation CT with acute kidney injury and urinary obstruction complicated by Alzheimer's dementia and recent right ankle fracture. Workup on this admission demonstrated extensive right lower extremi ty deep vein thrombosis from popliteal to the common femoral vein. She was to be worked up for pulmo nary embolism, but given her dementia, she may not be compliant with V/Q scan. PAST MEDICAL HISTORY: As above. MEDICATIONS: Per chart. ALLERGIES: None. SOCIAL HISTORY: She is current nonsmoker. No alcohol, no history of drug use. FAMILY HISTORY: Noncontributory. REVIEW OF SYSTEMS: A 12-point review of systems was negative other than that mentioned above. PHYSICAL EXAMINATION: GENERAL: Elderly-appearing lady, appears comfortable at rest, in no acute distress. VITAL SIGNS: Currently afebrile, pulse is 80, blood pressure 155/70, O2 saturation 96% on 3 liters n tatiana cannula. NECK: Supple. No JVD or lymphadenopathy. CARDIAC: S1, S2. No added sounds or murmurs. CHEST: Diminished air entry bilaterally. ABDOMEN: Soft, nontender. No guarding or rebound. EXTREMITIES: No cyanosis, clubbing or edema. NEUROLOGIC: Generalized weakness. LABORATORY DATA: White count now 11.6 down from 17.8, hemoglobin 9.9. Chemistry within normal limit s. PTT at 78. DIAGNOSTIC DATA: Chest and abdominal imaging as above. IMPRESSION AND PLAN: 1. Acute deep vein thrombosis and possible pulmonary embolism. 2. Recent ankle fracture. 3. History of dementia. I recommend: 1. Empiric treatment for venous thromboembolic disease with a minimum of 3 months of anticoagulation . 2. I would discontinue V/Q scan workup for pulmonary embolism as deep vein thrombosis already confir med. 3. Aspiration precautions. 4. DVT and GI prophylaxis. Dictated By: MORIS LOZA/SANDRA Conf#: [id number] DID#: [id number] CC: INGRIS RAMOS MD; ZAIN PALOMARES; NOEIM VERA MD;*[facility]*
[2018-10-17] MEDS: PANTOPRAZOLE (EC) 40 MG TAB PO SCH (18:14)
--- NOTE | 2018-10-17 19:31 | CONS ---
Consult Date/Type/Reason Admit Date/Time Oct 14, 2018 at 09:12 Initial Consult Date 10/15/18 Type of Consultation: Urology Reason for Consultation Urinary retention Requesting Provider: NOEMI EDGE Date/Time of Note DATE: 10/17/18 TIME: 19:27 Subjective The patient is confused. Objective Vitals Vital Signs Date Temp Pulse Resp B/P (MAP) Pulse Ox O2 O2 Flow FiO2 Time Delivery Rate 10/17/18 98.0 16 157/77 95 15:00 (103) 10/17/18 94 12:00 10/17/18 Nasal 3.0 08:00 Cannula Intake and Output 10/16/18 10/16/18 10/17/18 1515:00 23:00 07:00 IntakeIntake Total 480 ml 750 ml OutputOutput Total 750 ml 928 ml BalanceBalance -270 ml -178 ml Exam Patient did void a small amount earlier this morning and her postvoid residual was about 200 mL. However in the afternoon the bladder scan showed over 500 mL and she was catheterized for 550 mL. Results/Medications Result Diagram: 10/16/18 0549 10/17/18 0524 Results 24 hrs Laboratory Tests Test 10/17/18 01:01 10/17/18 05:24 10/17/18 13:52 Activated Partial Thromboplast Time > 180.0 *H 51.4 H 78.2 *H Sodium Level 142 Potassium Level 3.5 Chloride Level 101 Carbon Dioxide Level 27 Anion Gap 14 H Blood Urea Nitrogen 18 Creatinine 0.80 Est Glomerular Filtrat Rate mL/min Glucose Level 95 Calcium Level 8.3 L Phosphorus Level 3.5 Magnesium Level 1.9 Home Meds Reported Medications Alprazolam* (Xanax*) 0.5 Mg Tab, 0.5 MG PO Q12 PRN for ANXIETY, TAB 10/14/18 Quetiapine Fumarate* (Seroquel*) 25 Mg Tablet, 25 MG PO HS, #30 TAB 10/14/18 Sennosides* (Senna Lax*) 8.6 Mg Tablet, 1 TAB PO QHS PRN for CONSTIPATION, TAB 10/14/18 Hydrocodone/Acetaminophen ([place] 5-325 Tablet) 1 Each Tablet, 1 EACH PO Q6 PRN for SEVERE PAIN LEVEL 7-10, TAB 10/14/18 Multivitamins* (Theragran*) 1 Tab Tab, 1 TAB PO DAILY, TAB 10/14/18 Melatonin (Melatonin ODT) 3 Mg Tab.rapdis, 3 MG PO HS, TAB 10/14/18 Heparin Sodium,Porcine/Pf (HEPARIN SOD 5,000 UNIT/ 0.5 ML) 5,000 Unit/0.5 Ml Vial, 5000 UNIT IJ Q12, VIAL 10/14/18 Gabapentin* (Gabapentin*) 600 Mg Tablet, 600 MG PO TID, #90 TAB 10/14/18 Mineral Oil* (Fleet* Mineral Oil Enema) 133 Ml Oil, 133 ML CA NEEDED PRN for CONSTIPATION, ENEMA 10/14/18 Bisacodyl* (Bisacodyl*) 10 Mg Supp, 10 MG CA Q48 PRN for CONSTIPATION, SUPP 10/14/18 Donepezil* (Donepezil*) 10 Mg Tablet, 10 MG PO DAILY, #30 TAB 10/14/18 Medications Current Medications IV Flush (NS 3 ml) 3 ml PER PROTOCOL IV ; Start 10/14/18 at 10:30 Aspirin (Aspirin) 81 mg DAILY PO Last administered on 10/17/18at 10:59; Admin Dose 81 MG; Start 10/15/18 at 09:00 Acetaminophen (Tylenol Tab) 650 mg Q6H PRN PO .PAIN 1-3 OR TEMP; Start 10/14/18 at 10:30 Multivitamins Therapeutic (Theragran) 1 tab DAILY PO Last administered on 10/17/18at 10:59; Admin Dose 1 TAB; Start 10/15/18 at 09:00 Quetiapine Fumarate (Seroquel) 25 mg HS PO Last administered on 10/16/18at 20: 43; Admin Dose 25 MG; Start 10/14/18 at 21:00 Senna (Senokot) 1 tab QHS PRN PO CONSTIPATION Last administered on 10/17/18at 06:57; Admin Dose 1 TAB; Start 10/14/18 at 19:00 Heparin Sodium (Porcine) (Heparin (1000 Units/ml)) 5,400 unit PER PROTOCOL PRN IV aPTT<47; Start 10/16/18 at 17:00 Heparin Sodium (Porcine) (Heparin (1000 Units/ml)) 2,700 unit PER PROTOCOL PRN IV aPTT<47-57; Start 10/16/18 at 17:00 Heparin Sodium (Porcine) 250 ml @ 0 mls/hr PER PROTOCOL IV Last administered on 10/16/18at 18:51; Admin Dose 12 MLS/HR; Start 10/16/18 at 17:00 Trazodone HCl (Desyrel) 50 mg HS PRN PO INSOMNIA Last administered on 10/16/18at 20:43; Admin Dose 50 MG; Start 10/16/18 at 20:30 Acetaminophen/ Hydrocodone Bitart ([place] (5/325)) 1 tab Q4H PRN PO MODERATE PAIN LEVEL 4-10; Start 10/17/18 at 02:30 Pantoprazole (Protonix Tab) 40 mg BID@0600,1800 PO Last administered on 10/17/18at 18:14; Admin Dose 40 MG; Start 10/17/18 at 18:00 Assessment/Plan Hospital Course (Demo Recall) 83-year-old female with past medical history of Alzheimer's dementia was at [facility] due to a right ankle fracture for rehabilitation. The patient was found to be hypoxic. The patient was saturating apparently 70% and required 2 L of nasal cannula with improvement in the pulse oximetry. The patient also had an episode of coffee-ground emesis. The patient had a distended abdomen and appeared clammy as per the patient's daughter. Therefore, 911 was called and the patient was brought to the emergency room for further evaluation. The patient had significant abdominal distention that improved with Garcia catheter insertion that drained 1600 mL of urine. The patient was also noticed to have elevated troponins and leukocytosis. The patient was also noticed to be in acute kidney injury. The patient underwent a CT scan of the abdomen and pelvis that was showing mild bilateral hydroureteronephrosis and sigmoid diverticulosis without diverticulitis. The patient was also noticed to have a hyperkalemia with a potassium of 5.5 Because of the urinary retention and the hydronephrosis a urological consultation was requested. I did see the patient with HER-2 daughters at her bedside. The daughter states that patient prior to falling and sustaining the ankle fracture she was able to walk to the bathroom and urinate without any problem and she did not have any incontinence and was not wearing any diaper. While at the long term since she was not allowed to weightbearing on her right ankle she was not able to go to the bathroom and they have a diaper on her. She according to her daughter was holding her urine because she did not want to urinate in the diaper. Her hydronephrosis is secondary to her urinary retention. The retention itself could be secondary to her being constipated, trying to hold her urine, pain medications and other side effect of medications. She may even have had a problem before where she was not emptying her bladder but she was urinating? I would not put her on Urecholine since he has had a history of seizures as the Urecholine could trigger seizures. The patient did void a small amount earlier and the postvoid residual was less than 200 mL. However she did not void after that and the bladder scan did show over 500 mL. She therefore had in and out catheterization at 500 mL drained out. Plan is to continue to check her voiding and her postvoid residual and do straight cath for a postvoid residual of 300 mL or more and if she does not void for a bladder scan that shows 500 mL or more INGRIS RAMOS MD Oct 17, 2018 19:31
[2018-10-17] MEDS: QUETIAPINE 25 MG TAB PO SCH (20:57)
[2018-10-17] MEDS: HEPARIN 25000 UNITS/250 ML 250 ML IV SCH (21:00)
[2018-10-18] VITALS (12 sets, daily range): BP systolic 124–182; BP diastolic 56–75; PULSE 68–99; RESP 18–19
[2018-10-18] MEDS: PANTOPRAZOLE (EC) 40 MG TAB PO SCH ×2 (05:56→17:20)
--- NOTE | 2018-10-18 08:02 | CONS ---
Consult Date/Type/Reason Admit Date/Time Oct 14, 2018 at 09:12 Initial Consult Date 10/15/18 Type of Consultation: Urology Reason for Consultation Urinary retention Requesting Provider: NOEMI EDGE Date/Time of Note DATE: 10/18/18 TIME: 07:59 Subjective The patient is confused and has not been able to urinate Objective Vitals Vital Signs Date Temp Pulse Resp B/P (MAP) Pulse Ox O2 O2 Flow FiO2 Time Delivery Rate 10/18/18 97.7 88 18 158/72 96 Nasal 07:34 (100) Cannula 10/17/18 3.0 20:00 Intake and Output 10/17/18 10/17/18 10/18/18 1515:00 23:00 07:00 IntakeIntake Total 403 ml OutputOutput Total 530 ml 800 ml BalanceBalance -530 ml -397 ml Exam Patient remains confused. She was catheterized last night, monitoring of her voiding and her postvoid residual were reported as: 10/17/2018 2100, BLADDER SCAN >587; I/O 550 CC 10/18/2018 0120, BLADDER SCAN 259 10/18/2018, 0600, BLADDER SCAN 102, PATIENT WITH LARGE AREA OF WET CHUCKS. Results/Medications Result Diagram: 10/18/18 0341 10/18/18 0341 Results 24 hrs Laboratory Tests Test 10/17/18 13:52 10/17/18 20:55 10/18/18 03:41 Activated Partial Thromboplast Time 78.2 *H 61.9 H 97.6 *H White Blood Count 8.6 # Red Blood Count 3.81 L Hemoglobin 11.5 L Hematocrit 35.3 L Mean Corpuscular Volume 92.7 Mean Corpuscular Hemoglobin 30.2 Mean Corpuscular Hemoglobin Concent 32.6 Red Cell Distribution Width 12.0 Platelet Count 231 # Mean Platelet Volume 9.8 Immature Granulocytes % 1.300 H Neutrophils % 79.5 H Lymphocytes % 11.9 L Monocytes % 5.4 Eosinophils % 1.6 Basophils % 0.3 Nucleated Red Blood Cells % 0.0 Immature Granulocytes # 0.110 H Neutrophils # 6.9 Lymphocytes # 1.0 Monocytes # 0.5 Eosinophils # 0.1 Basophils # 0.0 Nucleated Red Blood Cells # 0.0 Sodium Level 142 Potassium Level 4.2 Chloride Level 99 Carbon Dioxide Level 30 Anion Gap 13 Blood Urea Nitrogen 17 Creatinine 0.79 Est Glomerular Filtrat Rate mL/min Glucose Level 118 Calcium Level 8.6 Phosphorus Level 3.9 Magnesium Level 2.0 Home Meds Reported Medications Alprazolam* (Xanax*) 0.5 Mg Tab, 0.5 MG PO Q12 PRN for ANXIETY, TAB 10/14/18 Quetiapine Fumarate* (Seroquel*) 25 Mg Tablet, 25 MG PO HS, #30 TAB 10/14/18 Sennosides* (Senna Lax*) 8.6 Mg Tablet, 1 TAB PO QHS PRN for CONSTIPATION, TAB 10/14/18 Hydrocodone/Acetaminophen ([place] 5-325 Tablet) 1 Each Tablet, 1 EACH PO Q6 PRN for SEVERE PAIN LEVEL 7-10, TAB 10/14/18 Multivitamins* (Theragran*) 1 Tab Tab, 1 TAB PO DAILY, TAB 10/14/18 Melatonin (Melatonin ODT) 3 Mg Tab.rapdis, 3 MG PO HS, TAB 10/14/18 Heparin Sodium,Porcine/Pf (HEPARIN SOD 5,000 UNIT/ 0.5 ML) 5,000 Unit/0.5 Ml Vial, 5000 UNIT IJ Q12, VIAL 10/14/18 Gabapentin* (Gabapentin*) 600 Mg Tablet, 600 MG PO TID, #90 TAB 10/14/18 Mineral Oil* (Fleet* Mineral Oil Enema) 133 Ml Oil, 133 ML MD NEEDED PRN for CONSTIPATION, ENEMA 10/14/18 Bisacodyl* (Bisacodyl*) 10 Mg Supp, 10 MG MD Q48 PRN for CONSTIPATION, SUPP 10/14/18 Donepezil* (Donepezil*) 10 Mg Tablet, 10 MG PO DAILY, #30 TAB 10/14/18 Medications Current Medications IV Flush (NS 3 ml) 3 ml PER PROTOCOL IV ; Start 10/14/18 at 10:30 Aspirin (Aspirin) 81 mg DAILY PO Last administered on 10/17/18at 10:59; Admin Dose 81 MG; Start 10/15/18 at 09:00 Acetaminophen (Tylenol Tab) 650 mg Q6H PRN PO .PAIN 1-3 OR TEMP; Start 10/14/18 at 10:30 Multivitamins Therapeutic (Theragran) 1 tab DAILY PO Last administered on 2/18/19at 10:59; Admin Dose 1 TAB; Start 10/15/18 at 09:00 Quetiapine Fumarate (Seroquel) 25 mg HS PO Last administered on 10/17/18 20:57; Admin Dose 25 MG; Start 10/14/18 at 21:00 Senna (Senokot) 1 tab QHS PRN PO CONSTIPATION Last administered on 10/17/18 06:57; Admin Dose 1 TAB; Start 10/14/18 at 19:00 Heparin Sodium (Porcine) (Heparin (1000 Units/ml)) 5,400 unit PER PROTOCOL PRN IV aPTT<47; Start 10/16/18 at 17:00 Heparin Sodium (Porcine) (Heparin (1000 Units/ml)) 2,700 unit PER PROTOCOL PRN IV aPTT<47-57; Start 10/16/18 at 17:00 Heparin Sodium (Porcine) 250 ml @ 0 mls/hr PER PROTOCOL IV Last administered on 10/17/18 21:00; Admin Dose 11.5 MLS/HR; Start 10/16/18 at 17:00 Trazodone HCl (Desyrel) 50 mg HS PRN PO INSOMNIA Last administered on 10/16/18 20:43; Admin Dose 50 MG; Start 10/16/18 at 20:30 Acetaminophen/ Hydrocodone Bitart ([place] (5/325)) 1 tab Q4H PRN PO MODERATE PAIN LEVEL 4-10; Start 10/17/18 at 02:30 Pantoprazole (Protonix Tab) 40 mg BID@0600,1800 PO Last administered on 10/18/18 05:56; Admin Dose 40 MG; Start 10/17/18 at 18:00 Assessment/Plan Hospital Course (Demo Recall) 83-year-old female with past medical history of Alzheimer's dementia was at [facility] due to a right ankle fracture for rehabilitation. The patient was found to be hypoxic. The patient was saturating apparently 70% and required 2 L of nasal cannula with improvement in the pulse oximetry. The patient also had an episode of coffee-ground emesis. The patient had a distended abdomen and appeared clammy as per the patient's daughter. Therefore, 911 was called and the patient was brought to the emergency room for further evaluation. The patient had significant abdominal distention that improved with Garcia catheter insertion that drained 1600 mL of urine. The patient was also noticed to have elevated troponins and leukocytosis. The patient was also noticed to be in acute kidney injury. The patient underwent a CT scan of the abdomen and pelvis that was showing mild bilateral hydroureteronephrosis and sigmoid diverticulosis without diverticulitis. The patient was also noticed to have a hyperkalemia with a potassium of 5.5 Because of the urinary retention and the hydronephrosis a urological consultation was requested. I did see the patient with HER-2 daughters at her bedside. The daughter states that patient prior to falling and sustaining the ankle fracture she was able to walk to the bathroom and urinate without any problem and she did not have any incontinence and was not wearing any diaper. While at the custodial since she was not allowed to weightbearing on her right ankle she was not able to go to the bathroom and they have a diaper on her. She according to her daughter was holding her urine because she did not want to urinate in the diaper. Her hydronephrosis is secondary to her urinary retention. The retention itself could be secondary to her being constipated, trying to hold her urine, pain medications and other side effect of medications. She may even have had a problem before where she was not emptying her bladder but she was urinating? I would not put her on Urecholine since he has had a history of seizures as the Urecholine could trigger seizures. The patient remains confused and was catheterized last night because of bladder scan showing over 500 mL. The monitoring of her voiding and postvoid residual were reported as: 10/17/2018 2100, BLADDER SCAN >587; I/O 550 CC 10/18/2018 0120, BLADDER SCAN 259 10/18/2018, 0600, BLADDER SCAN 102, PATIENT WITH LARGE AREA OF WET CHUCKS. Continue present treatment. INGRIS RAMOS MD Oct 18, 2018 08:02
--- NOTE | 2018-10-18 08:08 | CONS ---
Assessment/Plan Assessment/Plan Assessment/Plan (Daily) Elevated trop c/w NSTEMI Likely type II. OR probably from PE. Abnormal troponin secondary to above. Acute renal failure improving Hydronephrosis Anemia Status post recent ankle surgery DVT Recommendations lower extremity ultrasound C/W DVT Continue aggressive medical therapy d/w Dr Vera . Would rx Elqiuis and stop heparin if agreeable with primary service for DVT Consultation Date/Type/Reason Admit Date/Time Oct 14, 2018 at 09:12 Initial Consult Date 10/15/18 Type of Consult Cardiology Requesting Provider: NOEMI VERA Date/Time of Note DATE: 10/18/18 TIME: 08:07 24 HR Interval Summary Free Text/Dictation the patient with no cahnge Exam/Review of Systems Vital Signs Vitals Vital Signs Date Temp Pulse Resp B/P (MAP) Pulse Ox O2 O2 Flow FiO2 Time Delivery Rate 10/18/18 88 18 139/66 08:00 (90) 10/18/18 97.7 96 Nasal 07:34 Cannula 10/17/18 3.0 20:00 Intake and Output 10/17/18 10/17/18 10/18/18 1515:00 23:00 07:00 IntakeIntake Total 403 ml OutputOutput Total 530 ml 800 ml BalanceBalance -530 ml -397 ml Labs Result Diagram: 10/18/18 0341 10/18/18 0341 Results 24hrs Laboratory Tests Test 10/17/18 13:52 10/17/18 20:55 10/18/18 03:41 Activated Partial Thromboplast Time 78.2 *H 61.9 H 97.6 *H White Blood Count 8.6 # Red Blood Count 3.81 L Hemoglobin 11.5 L Hematocrit 35.3 L Mean Corpuscular Volume 92.7 Mean Corpuscular Hemoglobin 30.2 Mean Corpuscular Hemoglobin Concent 32.6 Red Cell Distribution Width 12.0 Platelet Count 231 # Mean Platelet Volume 9.8 Immature Granulocytes % 1.300 H Neutrophils % 79.5 H Lymphocytes % 11.9 L Monocytes % 5.4 Eosinophils % 1.6 Basophils % 0.3 Nucleated Red Blood Cells % 0.0 Immature Granulocytes # 0.110 H Neutrophils # 6.9 Lymphocytes # 1.0 Monocytes # 0.5 Eosinophils # 0.1 Basophils # 0.0 Nucleated Red Blood Cells # 0.0 Sodium Level 142 Potassium Level 4.2 Chloride Level 99 Carbon Dioxide Level 30 Anion Gap 13 Blood Urea Nitrogen 17 Creatinine 0.79 Est Glomerular Filtrat Rate mL/min Glucose Level 118 Calcium Level 8.6 Phosphorus Level 3.9 Magnesium Level 2.0 Medications Medications Current Medications IV Flush (NS 3 ml) 3 ml PER PROTOCOL IV ; Start 10/14/18 at 10:30 Aspirin (Aspirin) 81 mg DAILY PO Last administered on 10/17/18 10:59; Admin Dose 81 MG; Start 10/15/18 at 09:00 Acetaminophen (Tylenol Tab) 650 mg Q6H PRN PO .PAIN 1-3 OR TEMP; Start 10/14/18 at 10:30 Multivitamins Therapeutic (Theragran) 1 tab DAILY PO Last administered on 10/17/18 10:59; Admin Dose 1 TAB; Start 10/15/18 at 09:00 Quetiapine Fumarate (Seroquel) 25 mg HS PO Last administered on 10/17/18 20:57; Admin Dose 25 MG; Start 10/14/18 at 21:00 Senna (Senokot) 1 tab QHS PRN PO CONSTIPATION Last administered on 10/17/18 06:57; Admin Dose 1 TAB; Start 10/14/18 at 19:00 Heparin Sodium (Porcine) (Heparin (1000 Units/ml)) 5,400 unit PER PROTOCOL PRN IV aPTT<47; Start 10/16/18 at 17:00 Heparin Sodium (Porcine) (Heparin (1000 Units/ml)) 2,700 unit PER PROTOCOL PRN IV aPTT<47-57; Start 10/16/18 at 17:00 Heparin Sodium (Porcine) 250 ml @ 0 mls/hr PER PROTOCOL IV Last administered on 10/17/18 21:00; Admin Dose 11.5 MLS/HR; Start 10/16/18 at 17:00 Trazodone HCl (Desyrel) 50 mg HS PRN PO INSOMNIA Last administered on 10/16/18at 20:43; Admin Dose 50 MG; Start 10/16/18 at 20:30 Acetaminophen/ Hydrocodone Bitart ([place] (5/325)) 1 tab Q4H PRN PO MODERATE PAIN LEVEL 4-10; Start 10/17/18 at 02:30 Pantoprazole (Protonix Tab) 40 mg BID@0600,1800 PO Last administered on 10/18/18at 05:56; Admin Dose 40 MG; Start 10/17/18 at 18:00 NINA WOODS MD Oct 18, 2018 08:08
[2018-10-18] MEDS: ASPIRIN 81 MG TAB PO SCH (08:19)
[2018-10-18] MEDS: MULTIVITAMINS THERAPEUTIC TAB PO SCH (08:19)
--- NOTE | 2018-10-18 08:40 | PN ---
DATE: 10/18/2018 SUBJECTIVE: The patient is stable. The patient was noted to have urinary retention yesterday requir ing a Garcia catheter in and out x1. No other events noted. OBJECTIVE: VITAL SIGNS: Blood pressure is 158/72, pulse 88, respirations 18, temperature 97.7. HEENT: Head is normocephalic. NECK: Supple. HEART: Regular rate. LUNGS: Show diminished breath sounds at the base. ABDOMEN: Soft, nontender to palpation. No rebound or guarding. EXTREMITIES: Negative for clubbing, cyanosis, no edema. DERMATOLOGIC: No rashes. MUSCULOSKELETAL: No joint effusion. NEUROLOGIC: No change in exam. MEDICATIONS: Reviewed. LABORATORY DATA: From 10/18/2018 shows BMP within normal limits. ASSESSMENT AND PLAN: 1. Nonoliguric acute kidney injury with unknown baseline creatinine. Etiology is secondary to obstr uctive uropathy. The patient's renal function has improved after Garcia catheter placement. Continue to monitor. 2. Hyperkalemia, resolved. 3. Hypernatremia, improved. Continue to encourage free water intake. 4. Urinary retention. Continue voiding trials. Follow up with urology. 5. Mineral bone disorder, monitor calcium and phosphorus levels. 6. Acute encephalopathy and dementia. Continue to monitor. 7. Leukocytosis, systemic inflammatory response syndrome. Continue to monitor. Dictated By: MICHELLE VARGHESE DO NR/NTS Conf#: [id number] DID#: [id number] CC: INGRIS RAMOS MD; ZAIN PALOMARES; NOEMI EDGE MD;*End*
--- NOTE | 2018-10-18 15:13 | CONS ---
Consult Date/Type/Reason Admit Date/Time Oct 14, 2018 at 09:12 Initial Consult Date 10/15/18 Type of Consult Pulmonary Requesting Provider: NOEMI EDGE Date/Time of Note DATE: 10/18/18 TIME: 15:07 Subjective Comfortable this morning no respiratory distress Objective Vital Signs Date Temp Pulse Resp B/P (MAP) Pulse Ox O2 O2 Flow FiO2 Time Delivery Rate 10/18/18 97 12:36 10/18/18 97.5 18 148/71 95 Room Air 11:35 (96) 10/18/18 3.0 08:00 Intake and Output 10/17/18 10/17/18 10/18/18 1515:00 23:00 07:00 IntakeIntake Total 403 ml OutputOutput Total 530 ml 800 ml BalanceBalance -530 ml -397 ml Exam PHYSICAL EXAMINATION: GENERAL: Elderly-appearing lady, appears comfortable at rest, in no acute distress. VITAL SIGNS: NECK: Supple. No JVD or lymphadenopathy. CARDIAC: S1, S2. No added sounds or murmurs. CHEST: Diminished air entry bilaterally. ABDOMEN: Soft, nontender. No guarding or rebound. EXTREMITIES: No cyanosis, clubbing or edema. NEUROLOGIC: Generalized weakness. Results/Medications Result Diagram: 10/18/18 0341 10/18/18 0341 Results 24 hrs Laboratory Tests Test 10/17/18 20:55 10/18/18 03:41 10/18/18 07:58 10/18/18 11:27 Activated 61.9 H 97.6 *H 122.1 *H Partial Thromboplast Time White Blood Count 8.6 # Red Blood Count 3.81 L Hemoglobin 11.5 L Hematocrit 35.3 L Mean Corpuscular 92.7 Volume Mean Corpuscular 30.2 Hemoglobin Mean Corpuscular 32.6 Hemoglobin Concent Red Cell 12.0 Distribution Width Platelet Count 231 # Mean Platelet Volume 9.8 Immature 1.300 H Granulocytes % Neutrophils % 79.5 H Lymphocytes % 11.9 L Monocytes % 5.4 Eosinophils % 1.6 Basophils % 0.3 Nucleated Red Blood 0.0 Cells % Immature 0.110 H Granulocytes # Neutrophils # 6.9 Lymphocytes # 1.0 Monocytes # 0.5 Eosinophils # 0.1 Basophils # 0.0 Nucleated Red Blood 0.0 Cells # Sodium Level 142 Potassium Level 4.2 Chloride Level 99 Carbon Dioxide Level 30 Anion Gap 13 Blood Urea Nitrogen 17 Creatinine 0.79 Est Glomerular Filtrat Rate mL/min Glucose Level 118 Calcium Level 8.6 Phosphorus Level 3.9 Magnesium Level 2.0 Bedside Glucose 120 Medications Current Medications IV Flush (NS 3 ml) 3 ml PER PROTOCOL IV ; Start 10/14/18 at 10:30 Aspirin (Aspirin) 81 mg DAILY PO Last administered on 10/18/18 08:19; Admin Dose 81 MG; Start 10/15/18 at 09:00 Acetaminophen (Tylenol Tab) 650 mg Q6H PRN PO .PAIN 1-3 OR TEMP; Start 10/14/18 at 10:30 Multivitamins Therapeutic (Theragran) 1 tab DAILY PO Last administered on 10/18/18at 08:19; Admin Dose 1 TAB; Start 10/15/18 at 09:00 Quetiapine Fumarate (Seroquel) 25 mg HS PO Last administered on 10/17/18at 20:57; Admin Dose 25 MG; Start 10/14/18 at 21:00 Senna (Senokot) 1 tab QHS PRN PO CONSTIPATION Last administered on 10/17/18 06:57; Admin Dose 1 TAB; Start 10/14/18 at 19:00 Trazodone HCl (Desyrel) 50 mg HS PRN PO INSOMNIA Last administered on 10/16/18at 20:43; Admin Dose 50 MG; Start 10/16/18 at 20:30 Acetaminophen/ Hydrocodone Bitart ([place] (5/325)) 1 tab Q4H PRN PO MODERATE PAIN LEVEL 4-10; Start 10/17/18 at 02:30 Pantoprazole (Protonix Tab) 40 mg BID@0600,1800 PO Last administered on 10/18/18at 05:56; Admin Dose 40 MG; Start 10/17/18 at 18:00 Assessment/Plan Hospital Course (Demo Recall) IMPRESSION 1. Acute deep vein thrombosis and possible pulmonary embolism. 2. Recent ankle fracture. 3. History of dementia. Plan 1. Empiric treatment for venous thromboembolic disease with a minimum of 3 months of anticoagulation. Eliquis 10mg bid x 7 days then mg bid x 3 months 2. PT recs 3. Aspiration precautions. 4. DVT and GI prophylaxis. consider snf. MORIS HALL MD, FCCP Oct 18, 2018 15:13
--- NOTE | 2018-10-18 20:15 | PN ---
DATE: 10/18/2018 SUBJECTIVE: The patient will open her eyes. She is nonverbal, but she looks comfortable. PHYSICAL EXAMINATION: GENERAL: On examination, an elderly appearing female, comfortable at rest in no distress. VITAL SIGNS: Temperature 97.5, pulse 97, respirations 18, blood pressure 148/71, saturations 95% on room air. CHEST: Diminished air entry without wheezes or crackles. CARDIOVASCULAR: Heart sounds S1 and S2 irregular. ABDOMEN: Soft, does not seem tender, hypoactive bowel sounds. EXTREMITIES: Lower extremity ____ edema. NEUROLOGIC: Generalized debility and weakness. IMAGING STUDIES: Including an ankle x-ray, lower extremity venous studies, CT of the abdomen and pel vis and renal ultrasound were all reviewed. ASSESSMENT: An 83-year-old female who [facility] n [facility] after she had sustained an ankle fracture that was nonsurgical who was sent to us because of s hortness of breath and managed for the followin. NSTEMI type 2 secondary to pulmonary embolism. 2. Bilateral DVT, pulmonary embolism. 3. Acute kidney injury secondary to obstructive uropathy from neurogenic bladder: Improved. 4. Urinary retention. Per urology secondary to constipation, improving. 5. Hyperkalemia secondary to JEANNINE, resolved. 6. Chronic Alzheimer's dementia. 7. History of brain mass, status post resection. The patient was on gabapentin for seizure prophyla xis and at this time my partner has discontinued gabapentin as the patient has never had a seizure an d this may be contributory to neurogenic bladder. 8. History of recent right ankle fracture, status post cast placement. 9. Status post started him. This is resolved. DISPOSITION: The patient is to be transitioned from heparin drip to oral Eliquis therapy, and I will commenced discharge planning. The family has ____ for a caregiver, and the patient will be discharg ed home to the family with caregiver assistance. She did not want to return to the [place] [facility]. In the meantime, though the patient is still requiring intermittent catheterization so, we will monitor in-house for now until urology clearance. PLAN OF CARE: At this time, we will plan to discharge her to home with the family. Of note is that the nurse outreach case manager from the entrance tells me that the family also appeared to be discharged home with hospice and is adequately confirm with them once this has been done, I will have patient's discharge to home care on the home hospice. Dictated By: PRANAY GAINES MD BA/SANDRA Conf#: [id number] DID#: [id number] CC: ZAIN PALOMARES;*EndCC*
[2018-10-18] MEDS: APIXABAN 5 MG TABLET PO SCH (21:02)
[2018-10-18] MEDS: QUETIAPINE 25 MG TAB PO SCH (21:02)
[2018-10-19] VITALS: BP 135/63; PULSE 101; RESP 17
[2018-10-19 04:00] VITALS: BP 136/66; PULSE 84; RESP 18
[2018-10-19 05:10] VITALS: BP 145/67; PULSE 80; RESP 17
[2018-10-19] MEDS: PANTOPRAZOLE (EC) 40 MG TAB PO SCH (06:00)
[2018-10-19 07:25] VITALS: BP 146/79; PULSE 79; RESP 18
--- NOTE | 2018-10-19 07:59 | CONS ---
Consult Date/Type/Reason Admit Date/Time Oct 14, 2018 at 09:12 Initial Consult Date 10/15/18 Type of Consultation: Urology Reason for Consultation Urinary retention Requesting Provider: NOEMI EDGE Date/Time of Note DATE: 10/19/18 TIME: 07:56 Subjective Patient is confused. Her caregiver at bedside. Patient appears to have voided during the night and her postvoid residual was low at 77 mL Objective Vitals Vital Signs Date Temp Pulse Resp B/P (MAP) Pulse Ox O2 O2 Flow FiO2 Time Delivery Rate 10/19/18 98.2 79 18 146/79 90 Room Air 07:25 (101) 10/18/18 3.0 08:00 Intake and Output 10/18/18 10/18/18 10/19/18 1515:00 23:00 07:00 IntakeIntake Total 400 ml 200 ml OutputOutput Total 510 ml BalanceBalance -110 ml 200 ml Exam Patient is sleeping and in no acute distress Results/Medications Result Diagram: 10/18/18 0341 10/18/18 0341 Results 24 hrs Laboratory Tests Test 10/18/18 07:58 10/18/18 11:27 Bedside Glucose 120 Activated Partial Thromboplast Time 122.1 *H Home Meds Reported Medications Alprazolam* (Xanax*) 0.5 Mg Tab, 0.5 MG PO Q12 PRN for ANXIETY, TAB 10/14/18 Quetiapine Fumarate* (Seroquel*) 25 Mg Tablet, 25 MG PO HS, #30 TAB 10/14/18 Sennosides* (Senna Lax*) 8.6 Mg Tablet, 1 TAB PO QHS PRN for CONSTIPATION, TAB 10/14/18 Hydrocodone/Acetaminophen ([place] 5-325 Tablet) 1 Each Tablet, 1 EACH PO Q6 PRN for SEVERE PAIN LEVEL 7-10, TAB 10/14/18 Multivitamins* (Theragran*) 1 Tab Tab, 1 TAB PO DAILY, TAB 10/14/18 Melatonin (Melatonin ODT) 3 Mg Tab.rapdis, 3 MG PO HS, TAB 10/14/18 Heparin Sodium,Porcine/Pf (HEPARIN SOD 5,000 UNIT/ 0.5 ML) 5,000 Unit/0.5 Ml Vial, 5000 UNIT IJ Q12, VIAL 10/14/18 Gabapentin* (Gabapentin*) 600 Mg Tablet, 600 MG PO TID, #90 TAB 10/14/18 Mineral Oil* (Fleet* Mineral Oil Enema) 133 Ml Oil, 133 ML [place] NEEDED PRN for CONSTIPATION, ENEMA 10/14/18 Bisacodyl* (Bisacodyl*) 10 Mg Supp, 10 MG [place] Q48 PRN for CONSTIPATION, SUPP 10/14/18 Donepezil* (Donepezil*) 10 Mg Tablet, 10 MG PO DAILY, #30 TAB 10/14/18 Medications Current Medications IV Flush (NS 3 ml) 3 ml PER PROTOCOL IV ; Start 10/14/18 at 10:30 Aspirin (Aspirin) 81 mg DAILY PO Last administered on 10/18/18at 08:19; Admin Dose 81 MG; Start 10/15/18 at 09:00 Acetaminophen (Tylenol Tab) 650 mg Q6H PRN PO .PAIN 1-3 OR TEMP; Start 10/14/18 at 10:30 Multivitamins Therapeutic (Theragran) 1 tab DAILY PO Last administered on 10/18/18at 08:19; Admin Dose 1 TAB; Start 10/15/18 at 09:00 Quetiapine Fumarate (Seroquel) 25 mg HS PO Last administered on 10/18/18at 21:0 2; Admin Dose 25 MG; Start 10/14/18 at 21:00 Senna (Senokot) 1 tab QHS PRN PO CONSTIPATION Last administered on 10/17/18at 06:57; Admin Dose 1 TAB; Start 10/14/18 at 19:00 Trazodone HCl (Desyrel) 50 mg HS PRN PO INSOMNIA Last administered on 10/16/18at 20:43; Admin Dose 50 MG; Start 10/16/18 at 20:30 Acetaminophen/ Hydrocodone Bitart ([place] (5/325)) 1 tab Q4H PRN PO MODERATE PAIN LEVEL 4-10; Start 10/17/18 at 02:30 Pantoprazole (Protonix Tab) 40 mg BID@0600,1800 PO Last administered on 10/18/18 at 17:20; Admin Dose 40 MG; Start 10/17/18 at 18:00 Apixaban (Eliquis) 10 mg BID PO Last administered on 10/18/18at 21:02; Admin Dose 10 MG; Start 10/18/18 at 21:00; Stop 10/25/18 at 20:59 Apixaban (Eliquis) 5 mg BID PO ; Start 10/26/18 at 09:00 Assessment/Plan Hospital Course (Demo Recall) 83-year-old female with past medical history of Alzheimer's dementia was at [facility] due to a right ankle fracture for rehabilitation. The patient was found to be hypoxic. The patient was saturating apparently 70% and required 2 L of nasal cannula with improvement in the pulse oximetry. The patient also had an episode of coffee-ground emesis. The patient had a distended abdomen and appeared clammy as per the patient's daughter. Therefore, 911 was called and the patient was brought to the emergency room for further evaluation. The patient had significant abdominal distention that improved with Garcia catheter insertion that drained 1600 mL of urine. The patient was also noticed to have elevated troponins and leukocytosis. The yadiel ent was also noticed to be in acute kidney injury. The patient underwent a CT scan of the abdomen and pelvis that was showing mild bilateral hydroureteronephrosis and sigmoid diverticulosis without diverticulitis. The patient was also noticed to have a hyperkalemia with a potassium of 5.5 Because of the urinary retention and the hydronephrosis a urological consultation was requested. I did see the patient with HER-2 daughters at her bedside. The daughter states that patient prior to falling and sustaining the ankle fracture she was able to walk to the bathroom and urinate without any problem and she did not have any incontinence and was not wearing any diaper. While at the [place] [facility] since she was not allowed to weightbearing on her right ankle she was not able to go to the bathroom and they have a diaper on her. She according to her daughter was holding her urine because she did not want to urinate in the diaper. Her hydronephrosis is secondary to her urinary retention. The retention itself could be secondary to her being constipated, trying to hold her urine, pain medications and other side effect of medications. She may even have had a problem before where she was not emptying her bladder but she was urinating? Patient has voided and her postvoid residual was 77 mL on the bladder scan. Her white count is normal and so is her renal function. Urologically she may be discharged. I understand she is going into hospice and if that is the case they may put the Garcia catheter if she does go into retention. INGRIS RAMOS MD Oct 19, 2018 07:59
[2018-10-19] MEDS: MULTIVITAMINS THERAPEUTIC TAB PO SCH (09:13)
[2018-10-19] MEDS: APIXABAN 5 MG TABLET PO SCH (09:13)
[2018-10-19] MEDS: ASPIRIN 81 MG TAB PO SCH (09:13)
--- NOTE | 2018-10-19 09:14 | PN ---
DATE: 10/19/2018 SUBJECTIVE: The patient is stable. No events overnight. No fevers, chills, nausea, vomiting. OBJECTIVE: VITAL SIGNS: Blood pressure is 146/79, pulse 79, respirations 18, temperature 98.2. HEENT: Head is normocephalic. NECK: Supple. HEART: Regular rate. LUNGS: Show diminished breath sounds at the base. ABDOMEN: Soft, nontender to palpation without rebound or guarding. EXTREMITIES: Negative for clubbing, cyanosis, no edema. DERMATOLOGIC: No rashes. MUSCULOSKELETAL: No joint effusion. NEUROLOGIC: No change in exam. MEDICATIONS: The patient's medications have been reviewed. LABORATORY DATA: Shows white count 8.6, hemoglobin 11.5, platelet count is 231. Laboratory data fro m 10/18/2018 showed a BMP within normal limits. ASSESSMENT AND PLAN: 1. Nonoliguric acute kidney injury with unknown baseline creatinine. Etiology is secondary obstruct renee uropathy. Renal function is improved. Continue to monitor. 2. Urinary retention. Continue to monitor PVRs. Continue voiding trial. 3. Hyperkalemia, resolved. 4. Hyponatremia, improved. 5. Mineral bone disorder. Monitor calcium and phosphorus levels. 6. Acute encephalopathy on dementia. Continue to monitor. 7. SIRS. The patient is currently off antibiotics. Will continue to monitor. 8. History of a brain mass, status post resection. Continue medical management. 9. Acute DVT, possible pulmonary embolism. The patient is currently on anticoagulation, will contin ue. Follow up with pulmonary. Dictated By: MICHELLE ONEIL/SANDRA Conf#: [id number] DID#: [id number] CC: ZAIN PALOMARES;*EndCC*
--- NOTE | 2018-10-19 11:12 | CONS ---
Assessment/Plan Assessment/Plan Hospital Course (Demo Recall) Elevated troponin, trending down DVT with possible pulmonary emboli Acute renal failure improving Hydronephrosis Anemia Status post recent ankle surgery DVT -Continue anticoagulation if no contraindication -Would add statin therapy if no contraindication -We will add beta-lynsey and titrate as heart rate and blood pressure permits Consultation Date/Type/Reason Admit Date/Time Oct 14, 2018 at 09:12 Initial Consult Date 10/15/18 Type of Consult Cardiology Requesting Provider: NOEMI EDGE Date/Time of Note DATE: 10/19/18 TIME: 11:11 24 HR Interval Summary Free Text/Dictation Denies shortness of breath, palpitations, chest pain Exam/Review of Systems Vital Signs Vitals Vital Signs Date Temp Pulse Resp B/P (MAP) Pulse Ox O2 O2 Flow FiO2 Time Delivery Rate 10/19/18 98.2 79 18 146/79 90 Room Air 07:25 (101) 10/18/18 3.0 08:00 Intake and Output 10/18/18 10/18/18 10/19/18 1515:00 23:00 07:00 IntakeIntake Total 400 ml 200 ml OutputOutput Total 510 ml BalanceBalance -110 ml 200 ml Exam Constitutional: alert (Following commands, no apparent distress) Head: normocephalic Respiratory: other (Coarse breath sounds bilaterally, no wheezing) Cardiovascular: regular rate and rhythm (S1-S2 heard) Gastrointestinal: soft, non-tender, bowel sounds Extremities: other (Trace edema, cast on lower extremity) Labs Result Diagram: 10/18/18 0341 10/18/18 0341 Results 24hrs Laboratory Tests Test 10/18/18 11:27 Activated Partial Thromboplast Time 122.1 *H Medications Medications Current Medications IV Flush (NS 3 ml) 3 ml PER PROTOCOL IV ; Start 10/14/18 at 10:30 Aspirin (Aspirin) 81 mg DAILY PO Last administered on 10/19/18at 09:13; Admin Dose 81 MG; Start 10/15/18 at 09:00 Acetaminophen (Tylenol Tab) 650 mg Q6H PRN PO .PAIN 1-3 OR TEMP; Start 10/14/18 at 10:30 Multivitamins Therapeutic (Theragran) 1 tab DAILY PO Last administered on 10/19/18at 09:13; Admin Dose 1 TAB; Start 10/15/18 at 09:00 Quetiapine Fumarate (Seroquel) 25 mg HS PO Last administered on 10/18/18at 21:02; Admin Dose 25 MG; Start 10/14/18 at 21:00 Senna (Senokot) 1 tab QHS PRN PO CONSTIPATION Last administered on 10/17/18 06:57; Admin Dose 1 TAB; Start 10/14/18 at 19:00 Trazodone HCl (Desyrel) 50 mg HS PRN PO INSOMNIA Last administered on 10/16/18at 20:43; Admin Dose 50 MG; Start 10/16/18 at 20:30 Acetaminophen/ Hydrocodone Bitart ([place] (5/325)) 1 tab Q4H PRN PO MODERATE PAIN LEVEL 4-10; Start 10/17/18 at 02:30 Pantoprazole (Protonix Tab) 40 mg BID@0600,1800 PO Last administered on 10/18/18at 17:20; Admin Dose 40 MG; Start 10/17/18 at 18:00 Apixaban (Eliquis) 10 mg BID PO Last administered on 10/19/18at 09:13; Admin Dose 10 MG; Start 10/18/18 at 21:00; Stop 10/25/18 at 20:59 Apixaban (Eliquis) 5 mg BID PO ; Start 10/26/18 at 09:00 Og Cm DO Oct 19, 2018 11:12
[2018-10-19] MEDS ORDERED: APIX5TAB PO ×2 (11:49→13:07)
[2018-10-19] MEDS ORDERED: HEPA500021 IJ (11:49)
[2018-10-19] MEDS ORDERED: ASPI-831 PO (11:49)
[2018-10-19] MEDS ORDERED: ATOR20TA65 PO (11:49)
[2018-10-19] MEDS ORDERED: METO-448 PO (11:49)
[2018-10-19] MEDS ORDERED: GABA-526 PO (13:39)
[2018-10-19 14:12] VITALS: BP 128/84; PULSE 92; RESP 18
--- NOTE | 2018-10-19 14:36 | CONS ---
Consult Date/Type/Reason Admit Date/Time Oct 14, 2018 at 09:12 Initial Consult Date 10/15/18 Type of Consult Pulmonary Requesting Provider: NOEMI EDGE Date/Time of Note DATE: 10/19/18 TIME: 14:35 Subjective Patient stable this morning no respiratory distress. Objective Vital Signs Date Temp Pulse Resp B/P (MAP) Pulse Ox O2 O2 Flow FiO2 Time Delivery Rate 10/19/18 98.2 92 18 128/84 94 Room Air 14:12 (99) 10/18/18 3.0 08:00 Intake and Output 10/18/18 10/18/18 10/19/18 1515:00 23:00 07:00 IntakeIntake Total 400 ml 200 ml OutputOutput Total 510 ml BalanceBalance -110 ml 200 ml Exam PHYSICAL EXAMINATION: GENERAL: Elderly-appearing lady, appears comfortable at rest, in no acute distress. VITAL SIGNS: NECK: Supple. No JVD or lymphadenopathy. CARDIAC: S1, S2. No added sounds or murmurs. CHEST: Diminished air entry bilaterally. ABDOMEN: Soft, nontender. No guarding or rebound. EXTREMITIES: No cyanosis, clubbing or edema. NEUROLOGIC: Generalized weakness. Results/Medications Result Diagram: 10/18/18 03410/18/18 034 Medications Current Medications IV Flush (NS 3 ml) 3 ml PER PROTOCOL IV ; Start 10/14/18 at 10:30 Aspirin (Aspirin) 81 mg DAILY PO Last administered on 10/19/18at 09:13; Admin Dose 81 MG; Start 10/15/18 at 09:00 Acetaminophen (Tylenol Tab) 650 mg Q6H PRN PO .PAIN 1-3 OR TEMP; Start 10/14/18 at 10:30 Multivitamins Therapeutic (Theragran) 1 tab DAILY PO Last administered on 10/19/18at 09:13; Admin Dose 1 TAB; Start 10/15/18 at 09:00 Quetiapine Fumarate (Seroquel) 25 mg HS PO Last administered on 10/18/18at 21:02; Admin Dose 25 MG; Start 10/14/18 at 21:00 Senna (Senokot) 1 tab QHS PRN PO CONSTIPATION Last administered on 10/17/18at 06:57; Admin Dose 1 TAB; Start 10/14/18 at 19:00 Trazodone HCl (Desyrel) 50 mg HS PRN PO INSOMNIA Last administered on 10/16/18at 20:43; Admin Dose 50 MG; Start 10/16/18 at 20:30 Acetaminophen/ Hydrocodone Bitart ([place] (5/325)) 1 tab Q4H PRN PO MODERATE PAIN LEVEL 4-10; Start 10/17/18 at 02:30 Pantoprazole (Protonix Tab) 40 mg BID@0600,1800 PO Last administered on 10/18/18at 17:20; Admin Dose 40 MG; Start 10/17/18 at 18:00 Apixaban (Eliquis) 10 mg BID PO Last administered on 10/19/18at 09:13; Admin Dose 10 MG; Start 10/18/18 at 21:00; Stop 10/25/18 at 20:59 Apixaban (Eliquis) 5 mg BID PO ; Start 10/26/18 at 09:00 Atorvastatin Calcium (Lipitor) 20 mg HS PO ; Start 10/19/18 at 21:00 Metoprolol Tartrate (Lopressor) 25 mg BID PO ; Start 10/19/18 at 21:00 Assessment/Plan Hospital Course (Demo Recall) IMPRESSION 1. Acute deep vein thrombosis and possible pulmonary embolism. 2. Recent ankle fracture. 3. History of dementia. Plan 1. Empiric treatment for venous thromboembolic disease with a minimum of 3 months of anticoagulation. Eliquis 10mg bid x 7 days then mg bid x 3 months 2. PT recs 3. Aspiration precautions. 4. DVT and GI prophylaxis. DC planning with home hospice. Discussed plan of care with family. MORIS HALL MD, [facility] Oct 19, 2018 14:36
--- NOTE | 2018-10-19 16:45 | DS ---
DATE OF ADMISSION: 10/14/2018 DATE OF DISCHARGE: 10/19/2018 PRESENTING COMPLAINT: Worsening mental status. FINAL DIAGNOSES: An 83-year-old female who came [facility] us from a [facility] facility where she had been sent after she had sustained an ankle fracture that was nonsurgical, who was sent to us from the for shortness of breath and altered mentation. She was managed for the followin. Non-ST elevation myocardial infarction type 2 secondary to pulmonary embolism. 2. Bilateral deep vein thrombosis with a highly probable pulmonary embolism. 3. Acute kidney injury secondary to obstructive uropathy from neurogenic bladder that has improved. 4. Status post urinary retention by urology secondary to constipation. 5. Hyperkalemia secondary to JEANNINE, resolved. 6. Chronic Alzheimer dementia. 7. 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 8. History of recent right ankle fracture, status post cast placement. CONSULTS ON THE CASE: 1. Dr. Bob Barragan for pulmonary. 2. Dr. Barrington Bowden for nephrology. 3. Dr. Sonia Elizabeth for cardiology. SHORT HOSPITALIZATION COURSE: Full details are available in the chart for review. In summary, this pleasant female [facility] after she was found to be altered and was found to have a non-ST elevation myocardial infarction, and she was seen by cardiology who recommended that the patient get a 2D echocardiogram. 2D echocardiogram showed ejection fraction of 50% to 60% with moderate tricuspid regurgitation and an estimated peak PA systolic pressure of 40. However, the yadiel ent was found to have bilateral lower extremity DVTs and was high risk for PE, so pulmonary consultat ion was obtained as well. A pulmonary consult recommended patient to be empirically treated for pulm onary embolism based on clinical picture and findings. The patient had a prolonged hospitalization d ue to urinary retention and requiring Garcia catheterization as well as intermittent catheterization. She was seen by urology and her symptoms resolved eventually without any significant intervention ot her than stool softeners and bladder draining. At this point, she has been cleared by all specialtie s. However, apparently there had been a palliative care discussion ongoing prior to admission, and f kymberly at the time have opted for home with hospice care. She is being discharged to the family's car e who have hired a 24-hour caregiver to care for her under hospice umbrella. The patient overall is stable, but her long-term prognosis is guarded. For a complete list of her discharge medications, pl ease review the patient's chart. For further information and clarification, again, review the patien t's chart. Time spent on discharge coordination has been more than half an hour. Dictated By: PRANAY GAINES MD BA/NTS Conf#: [id number] DID#: [id number]
[2018-10-19] MEDS ORDERED: METOPROLOL 25 MG TAB PO SCH (21:00)
[2018-10-19] MEDS ORDERED: ATORVASTATIN 20 MG TAB PO SCH (21:00)
[2018-10-26] MEDS ORDERED: APIXABAN 5 MG TABLET PO SCH (09:00)
== END 2018-10-19 15:00 | disposition hospice, home (50) | DRG 280 ==
LOC: E/R 07:19 → TEL 09:12 → CANRESERV 10:09 → MS1 10-19 05:01
PROVIDERS: ADMIT Hospitalist; ATTEND Internal Medicine
DX: I21.A1 Myocardial infarction type 2 (principal); I26.99 Other pulmonary embolism without acute cor pulmonale; N17.9 Acute kidney failure, unspecified; G93.40 Encephalopathy, unspecified; N13.39 Other hydronephrosis; K92.0 Hematemesis; R65.10 Systemic inflammatory response syndrome (SIRS) of non-infectious origin without acute organ dysfunction; E87.0 Hyperosmolality and hypernatremia; I82.403 Acute embolism and thrombosis of unspecified deep veins of lower extremity, bilateral; E87.5 Hyperkalemia; R33.9 Retention of urine, unspecified; G30.9 Alzheimer's disease, unspecified; F02.80 Dementia in other diseases classified elsewhere, unspecified severity, without behavioral disturbance, psychotic disturbance, mood disturbance, and anxiety; N31.9 Neuromuscular dysfunction of bladder, unspecified; S82.891D Other fracture of right lower leg, subsequent encounter for closed fracture with routine healing; Z90.710 Acquired absence of both cervix and uterus; Z96.641 Presence of right artificial hip joint; X58.XXXD Exposure to other specified factors, subsequent encounter
CPT/HCPCS: 36415; 71045; 74176; 76775; 80048; 80053; 80061; 81001; 81003; 82043; 82150; 82550; 82553; 82962; 83036; 83605; 83690; 83735; 83880; 84100; 84155; 84300; 84484; 85014; 85018; 85025; 85610; 85730; 86850; 86870; 86900; 86901; 86902; 87040; 87086; 87400; 93005; 93306; 93970; 96365; 96375; A4310; C9113; J0692; J1630; J1644; J2270; J2405; J3370; J7030